=== PATIENT | female | born 1960 | race Two or more races ===

== ENCOUNTER 2017-01-16 05:25 | Inpatient (IN) | payer OTHER ==
[~2017-01-16] VITALS: Ht 152.4 cm; Wt 77.4 kg
[~2017-01-16 05:25] MED LIST: AMOX1TAB61 PO; ATOR40TA59 PO; Aspirin PO; CARV3.12 PO; CHOL500015 PO; CLOP75TA PO; FERR325T72 PO; FLUO20CA8 PO; FLUT16SP NS; FURO-68 PO; GABA-586 PO; GABA600T2; GLIM4TAB2 PO; INSU100I13 SQ; LEVO150T5; LEVO200T5 PO; LOSA1TAB17 PO; LOSA25TA4 PO; Lisinopril PO; MELO-150 PO; METF10002 PO; NITR0.4T6 SL; PANT40TA5 PO; POTA10TA12; POTA10TA31 PO; SULF1TAB23 PO; TICA90TA PO
[2017-01-16] MEDS ORDERED: FENTANYL PF 100 MCG/2 ML VIAL. IV PRN (06:30)
--- NOTE | 2017-01-16 06:45 | EKG ---
[facility] [address] [place] [address] Test Date: 2017-01-16 Test Time: 05:38:38 Pat Name: RAYNA RIZVI Department: Room: Gender: F Manager Packaging: : 1960 Requested By: Teodora MENDOZA Order Number: [id number] Reading MD: Jacinta Zepeda Measurements Intervals [place] Rate: 78 P: 45 AK: 132 QRS: 41 QRSD: 88 T: -15 QT: 380 QTc: 437 Interpretive Statements SINUS RHYTHM T ABNORMALITY IN INFERIOR LEADS ABNORMAL ECG Electronically Signed On 01-20-2017 19:42:03 TOOL OR DIE DRAWING CHECKER by Jacinta Zepeda
[2017-01-16 06:46] LABS: BASO % 1 % (0-3); CALCIUM 8.3 mg/dL (8.5-10.1); CREATININE 0.8 mg/dL (0.6-1.0); EOS % 7 % (0-3); GFR 74.5; HEMATOCRIT 29.2 % (36.0-47.0); HEMOGLOBIN 9.6 g/dL (12.0-15.5); LYMPH # 1.2 x10^3/uL (1.0-4.8); LYMPH % 19 % (24-48); MEAN CORPUSCULAR HEMOGLOBIN 30 pg (25-35); MEAN CORPUSCULAR HGB CONC 33 g/dL (31-37); MEAN CORPUSCULAR VOLUME 92 fL (79-100); MONO % 6 % (0-9); NEUT % 67 % (31-73); PLATELET COUNT 209 x10^3/uL (140-400); POTASSIUM 4.9 mmol/L (3.5-5.1); RED CELL DISTRIBUTION WIDTH 15.8 % (11.5-14.5); WHITE BLOOD COUNT 6.1 x10^3/uL (4.0-11.0)
[2017-01-16 06:56] LABS: PROTHROMBIN TIME PATIENT 12.1 SEC (11.7-14.0)
--- NOTE | 2017-01-16 07:03 | PHYS DOC ---
Past Medical History Past Medical History: Anxiety, CAD, CHF, Depression, Diabetes-Type II, High Cholesterol, Hypertension, Hypothyroid Additional Past Medical Histor: cardiomyopathy Past Surgical History: , Tubal ligation Additional Past Surgical Histo: PACEMAKER heart stents Alcohol Use: None Drug Use: None Adult General Chief Complaint Chief Complaint: SHORTNESS OF BREATH HPI HPI Patient is a 56 year old female who presents with 3 days of difficulty breathing, dry cough, and bilateral lower extremity edema. She also notes central chest tightness and orthopnea. States these symptoms are exactly like prior exacerbations of CHF. States she has increased her lasix dose without improvement of her symptoms, but she has increased urination. She denies fever or chills, nausea or vomiting, palpitations, diaphoresis, hemoptysis, leg pain, diarrhea, dysuria. Review of Systems Review of Systems Constitutional: Denies fever or chills [] Eyes: Denies change in visual acuity, redness, or eye pain [] HENT: Denies nasal congestion or sore throat [] Respiratory: Has cough and shortness of breath [] Cardiovascular: No additional information not addressed in HPI [] GI: Denies abdominal pain, nausea, vomiting, bloody stools or diarrhea [] : Denies dysuria or hematuria [] Musculoskeletal: Denies back pain or joint pain [] Integument: Denies rash or skin lesions [] Neurologic: Denies headache, focal weakness or sensory changes [] Endocrine: Denies polyuria or polydipsia [] Current Medications Current Medications Current Medications Medications (Trade) Dose Ordered Sig/[facility] Start Time Stop Time Status Last Admin Dose Admin Fentanyl Citrate (Fentanyl 2ml Vial) 50 mcg PRN Q15MIN PRN 01/16/17 06:30 01/17/17 06:29 01/16/17 06:39 50 MCG Allergies Allergies Allergies Coded Allergies Type Severity Reaction Last Updated Verified lisinopril Adverse Reaction Mild COUGH 01/16/17 Yes Physical Exam Physical Exam Constitutional: Well developed, well nourished, no acute distress, non-toxic appearance. [] HENT: Normocephalic, atraumatic, bilateral external ears normal, oropharynx moist, nose normal. [] Eyes: PERRLA, EOMI. [] Neck: Normal range of motion, supple. [] Cardiovascular:Heart rate regular rhythm [] Lungs & Thorax: Bibasilar crackles, normal work of breathing, equal breath sounds [] Abdomen: Bowel sounds normal, soft, no tenderness. [] Skin: Warm, dry, no erythema, no rash. [] Back: Normal range of motion. [] Extremities: No tenderness, ROM intact, bilateral 2+ lower extremity edema, no palpable cord. [] Neurologic: Alert and oriented X 3, normal motor function, normal sensory function, no focal deficits noted. [] Psychologic: Affect normal, judgement normal, mood normal. [] Current Patient Data Vital Signs Vital Signs Date Time Temp Pulse Resp B/P Pulse Ox O2 Delivery O2 Flow Rate FiO2 01/16/17 06:39 16 Room Air 01/16/17 06:36 163/72 01/16/17 06:08 76 95 01/16/17 05:37 97.6 97.6 Lab Values Laboratory Tests Test 01/16/17 05:42 White Blood Count 6.1x10^3/uL (4.0-11.0) Red Blood Count 3.20x10^6/uL (3.50-5.40) L Hemoglobin 9.6g/dL (12.0-15.5) L Hematocrit 29.2% (36.0-47.0) L Mean Corpuscular Volume 92fL (79-100) Mean Corpuscular Hemoglobin 30pg (25-35) Mean Corpuscular Hemoglobin Concent 33g/dL (31-37) Red Cell Distribution Width 15.8% (11.5-14.5) H Platelet Count 209x10^3/uL (140-400) Neutrophils (%) (Auto) 67% (31-73) Lymphocytes (%) (Auto) 19% (24-48) L Monocytes (%) (Auto) 6% (0-9) Eosinophils (%) (Auto) 7% (0-3) H Basophils (%) (Auto) 1% (0-3) Neutrophils # (Auto) 4.1x10^3uL (1.8-7.7) Lymphocytes # (Auto) 1.2x10^3/uL (1.0-4.8) Monocytes # (Auto) 0.3x10^3/uL (0.0-1.1) Eosinophils # (Auto) 0.4x10^3/uL (0.0-0.7) Basophils # (Auto) 0.0x10^3/uL (0.0-0.2) Prothrombin Time 12.1SEC (11.7-14.0) Prothrombin Time INR 1.0 (0.8-1.1) Sodium Level 146mmol/L (136-145) H Potassium Level 4.9mmol/L (3.5-5.1) Chloride Level 111mmol/L (98-107) H Carbon Dioxide Level 30mmol/L (21-32) Anion Gap 5 (6-14) L Blood Urea Nitrogen 36mg/dL (7-20) H Creatinine 0.8mg/dL (0.6-1.0) Estimated GFR (Cockcroft-Gault) 74.5 Glucose Level 254mg/dL (70-99) H Calcium Level 8.3mg/dL (8.5-10.1) L Troponin I Quantitative 0.019ng/mL (0.000-0.055) VS-Pue-Z-Type Natriuretic Peptide 4228pg/mL (0-124) H Laboratory Tests 01/16/17 05:42 Laboratory Tests 01/16/17 05:42 EKG EKG EKG as interpreted by me as normal sinus rhythm, rate 78, no ST-T changes, normal intervals, no ectopy, unchanged from prior Radiology/Procedures Radiology/Procedures Chest x-ray interpreted by me with bilateral pulmonary edema Course & Med Decision Making Course & Med Decision Making Pertinent Labs and Imaging studies reviewed. (See chart for details) Has pulmonary edema and elevated pro-BNP as well as physical exam findings of acute on chronic CHF exacerbation. Will admit for IV diuresis as she has recently increased her home dose without improvement of symptoms. Discussed case with Dr. Vences, who will admit. Cardiology consult placed. Dragon Disclaimer Dragon Disclaimer This electronic medical record was generated, in whole or in part, using a voice recognition dictation system. Departure Departure Impression: Primary Impression: Acute on chronic congestive heart failure Disposition: ADMITTED INPATIENT Condition: STABLE Referrals: GUERDA VENCES MD (PCP) Problem Qualifiers Primary Impression: Acute on chronic congestive heart failure Congestive heart failure type: unspecified congestive heart failure type Qualified Code: I50.9 - Heart failure, unspecified Teodora MENDOZA MD Jan 16, 2017 07:03
--- NOTE | 2017-01-16 07:09 | RAD ---
Chest, 2 views, 01/16/2017: History: Dyspnea Comparison is made to a study from 10/25/2016. A left-sided transvenous pacing device remains in place with 2 leads extending into the right heart. The heart is enlarged. The pulmonary vascularity is prominent. There are increased interstitial markings in the lungs suggesting interstitial edema. These opacities appear to be slightly worse than on the previous exam. No consolidating infiltrate is seen. There is no evidence of pleural fluid. The bony structures are demineralized. IMPRESSION: Cardiomegaly with moderate interstitial opacities most compatible with pulmonary edema due to congestive heart failure.
[2017-01-16] MEDS ORDERED: FUROSEMIDE 40 MG/4 ML VIAL IVP ONE (08:15)
[2017-01-16] MEDS ORDERED: ACETAMINOPHEN 325 MG TABLET. PO PRN (08:15)
[2017-01-16] MEDS ORDERED: ONDANSETRON PF 4 MG/2 ML VIAL. IV PRN (08:15)
--- NOTE | 2017-01-16 08:51 | ACF ---
Admit Criteria Forms Admit Criteria Forms Admit Criteria Forms HEART FAILURE: COMMON COMPLICATIONS Clinical Indications for Inpatient Care (Place 'X' for any and all applicable criteria): Ongoing inpatient care may be indicated for heart failure with ANY ONE of the following (1)(2)(3)(4)(5): [ ]I. Ongoing need for care for primary condition requiring frequent therapy adjustments because of changes in cardiac function (eg, drug dosage changes for drugs that are renally metabolized) [ ]II. New-onset heart failure [ ]III. Heart failure with decreased urine output not responsive to attempts to optimize volume status [ ]IV. Acute cardiac ischemia causing or associated with failure [X]V. Complications of heart failure, including ANY ONE of the following: [ ]a) Pericardial effusion [ ]b) Symptomatic pleural effusion [ ]c) O2 saturation <90% or PO2 < 60 mm Hg (8.0 kPa) on room air or require baseline supplemental O2 [ ]d) Tachypnea [X]e) Dyspnea [ ]f) Syncope [ ]g) Change in mental status [ ]h) Acute renal insufficiency that is severe (reduction of more than 50% in estimated glomerular filtration rate from baseline) or progressive reduction of more than 25% in estimated glomerular filtration rate from baseline, with creatinine continuing to rise) [ ]i) Hemodynamic instability [ ]j) Anasarca [ ]k) Clinically significant metabolic abnormalities due to heart failure (eg, new-onset metabolic acidosis) Extended stay beyond goal length of stay for primary condition may be needed until ALL of the following are present(1)(3): [ ]a) Stable and effective diuretic regimen established (or patient on stable dialysis regimen if in chronic renal failure) [ ]b) Breathing comfortably at rest [ ]c) Saturation of arterial oxygen greater than 90% or at acceptable baseline [ ]d) Pulmonary edema absent or improved [ ]e) Hemodynamic stability [ ]f) Volume status acceptable on oral medication [ ]g) Peripheral or sacral edema absent or improved [ ]h) Renal function stable and manageable at a lower level of care [ ]i) Complications (eg, pleural effusion) resolved or manageable at a lower level of care [ ]j) Patient or caregiver has received written discharge instructions or educational material addressing activity level, diet, discharge medications, follow-up appointment, weight monitoring, and what to do if symptoms worsen The original [employer] content created by Millimayoung Lea has been revised. The portions of the content which have been revised are identified through the use of italic text or in bold, and Peterduke [employer]oung Lea has neither reviewed nor approved the modified material.All other unmodified content is copyright [facility] [employer]. Please see references footnoted in the original [facility] [employer] edition 2016 DOUG JHAVERI Jan 16, 2017 08:51
[2017-01-16 09:16] VITALS: BP 173/79
--- NOTE | 2017-01-16 09:28 | PDOC2 ---
CARDIAC CONSULT DATE OF CONSULT Date of Consult DATE: 01/16/17 TIME: 09:19 REASON FOR CONSULT Reason for Consult: CHF Exacerbation REFERRING PHYSICIAN Referring Physician: Dr. Ham SOURCE Source: Chart review, Patient HISTORY OF PRESENT ILLNESS HISTORY OF PRESENT ILLNESS This is a 56 yo female who presented with complaints of shortness of breath and LE edema. Patient reports symptoms began 4-5 days ago. Much worse that last day or so. Apparently she was given steroids for right knee pain about a week ago and symptoms began within the next couple of days. Ongoing cough for the last week. Reports chest heaviness associated with shortness of breath. Relieves when she calms down/breathing improves. Has also had some dizziness and palpitations when significantly short of air. Has experienced orthopnea for the last 4 days. Denies any syncope, diaphoresis, nausea/vomiting, or fevers. No sick contacts. Reports compliance with medications. PAST MEDICAL HISTORY Past Medical History Cardiovascular: CHF, CAD (s/p PCI/KALANI to OMB of LCx and PTCA to diagonal branch of LAD), HTN, Hyperlipidemia, Other (ischemic cardiomyopathy s/p ICD ) CENTRAL NERVOUS SYSTEM: Peripheral neuropathy Psych: Anxiety, Depression Musculoskeletal: Osteoarthritis Renal/: Chronic renal insuff Endocrine: Diabetes, Hypothyroidism PAST SURGICAL HISTORY Past Surgical History Pacemaker (ICD implantation ([employer]) 03/06/16), Cataract Removal, Other (I&D left-sided buttock abscess) FAMILY HISTORY Family History: Hypertension SOCIAL HISTORY Smoke: <1 pack per day ALCOHOL: none Drugs: None Lives: with Family CURRENT MEDICATIONS CURRENT MEDICATIONS Current Medications Medications (Trade) Dose Ordered Sig/Arturo Route PRN Reason Start Time Stop Time Status Last Admin Dose Admin Fentanyl Citrate (Fentanyl 2ml Vial) 50 mcg PRN Q15MIN PRN IV PAIN GREATER THAN 3/10 01/16/17 06:30 01/17/17 06:29 01/16/17 06:39 ALLERGIES ALLERGIES: Coded Allergies: lisinopril (Verified Adverse Reaction, Mild, COUGH, 01/16/17) caused cough ROS Review of System 14 point ROS conducted with pertinent positives noted above in HPI. PHYSICAL EXAM General: Alert, Oriented X3, Cooperative, mild distress HEENT: Atraumatic, Mucous membr. moist/pink Lungs: Other (bibasila crackles, left chest ICD) Heart: Regular rate, Normal S1, Normal S2, Other (3/6 systolic murmur ) Abdomen: Soft Extremities: Normal pulses, Other (2+ bilateral LE edema ) Skin: No breakdown, No significant lesion Neuro: Normal speech, Sensation intact Psych/Mental Status: Mental status NL, Mood NL MUSCULOSKELETAL: Osteoarthritic changes both hands VITALS VITALS Vital Signs Date Time Temp Pulse Resp B/P Pulse Ox O2 Delivery O2 Flow Rate FiO2 01/16/17 09:16 98.0 79 20 173/79 93 Room Air 98.0 LABS Lab: Laboratory Tests Test 01/16/17 05:42 White Blood Count 6.1x10^3/uL (4.0-11.0) Red Blood Count 3.20x10^6/uL (3.50-5.40) Hemoglobin 9.6g/dL (12.0-15.5) Hematocrit 29.2% (36.0-47.0) Mean Corpuscular Volume 92fL (79-100) Mean Corpuscular Hemoglobin 30pg (25-35) Mean Corpuscular Hemoglobin Concent 33g/dL (31-37) Red Cell Distribution Width 15.8% (11.5-14.5) Platelet Count 209x10^3/uL (140-400) Neutrophils (%) (Auto) 67% (31-73) Lymphocytes (%) (Auto) 19% (24-48) Monocytes (%) (Auto) 6% (0-9) Eosinophils (%) (Auto) 7% (0-3) Basophils (%) (Auto) 1% (0-3) Neutrophils # (Auto) 4.1x10^3uL (1.8-7.7) Lymphocytes # (Auto) 1.2x10^3/uL (1.0-4.8) Monocytes # (Auto) 0.3x10^3/uL (0.0-1.1) Eosinophils # (Auto) 0.4x10^3/uL (0.0-0.7) Basophils # (Auto) 0.0x10^3/uL (0.0-0.2) Prothrombin Time 12.1SEC (11.7-14.0) Prothromb Time International Ratio 1.0 (0.8-1.1) Sodium Level 146mmol/L (136-145) Potassium Level 4.9mmol/L (3.5-5.1) Chloride Level 111mmol/L (98-107) Carbon Dioxide Level 30mmol/L (21-32) Anion Gap 5 (6-14) Blood Urea Nitrogen 36mg/dL (7-20) Creatinine 0.8mg/dL (0.6-1.0) Estimated GFR (Cockcroft-Gault) 74.5 Glucose Level 254mg/dL (70-99) Calcium Level 8.3mg/dL (8.5-10.1) Troponin I Quantitative 0.019ng/mL (0.000-0.055) ZY-Ncg-V-Type Natriuretic Peptide 4228pg/mL (0-124) ECHOCARDIOGRAM ECHOCARDIOGRAM <Conclusion> The Left Ventricle is mildly dilated. Left ventricle systolic function is moderately impaired. Left ventricular ejection fraction is estimated at 35%. There is no significant aortic valvular stenosis. Doppler and Color Flow revealed no significant aortic regurgitation. Doppler and Color Flow revealed mild mitral regurgitation. Doppler and Color Flow revealed mild to moderate tricuspid regurgitation. The PA pressure was estimated at 52 mmHg. There is a small pericardial effusion with no hemodynamic significance. DATE: 10/26/16 1747 STRESS TEST STRESS TEST Conclusion 1. No EKG evidence of inducible ischemia. 2. Nuclear images show an inferior lateral wall infarct. 3. Nuclear images also suggest a small area of reversible ischemia in the anterior wall. 4. Left ventricular systolic function is decreased at 38% with inferior wall hypokinesis. 5. Moderate to moderately low risk Lexiscan nuclear test most significant for previous infarct and a possible small area of reversible ischemia in the anterior wall. DATE: 02/05/15 1144 ASSESSMENT/PLAN ASSESSMENT/PLAN 1. Acute on Chronic Systolic Heart Failure NT Pro BNP elevated; CXR with vascular congestion improved with IV Lasix; continue intravenous diuresis with monitoring of renal function 2. Acute on chronic respiratory failure secondary to acute HF and URI 3. Ischemic Cardiomyopathy s/p AICD implantation ([employer]) Recent echo with EF 35%, which is better than prior, notable for polyvalvular insufficiency with moderate pulmonary HTN Continue with optimization Maintain Na control and 2000 FR 4. Coronary Artery Disease s/p PCI/KALANI to HARDWARE DESIGN ENGINEER of RCA, diagonal branch of LAD and OM brand of LCx. presently stable and CP free. continue with secondary prevention including DAPT consider ischemic workup when acute issues resolve. 5. Hypertension labile resume home antiHTN therapy Hydralazine PRN 6. Hyperlipidemia On goal, continue with statin 7. DM2 8. Hypothyroidism on replacement therapy 9. Tobaccoism cessation discussed Problems: AMBROSE MCDONNELL APRN Jan 16, 2017 09:28
[2017-01-16] MEDS ORDERED: LOSA25TA4 PO (09:30)
[2017-01-16] MEDS: FENTANYL PF 100 MCG/2 ML VIAL. IV PRN ×3 (09:39→14:42)
[2017-01-16 10:50] VITALS: BP 161/72
[2017-01-16] MEDS ORDERED: hydrALAZINE 20 MG/ML VIAL. IVP PRN (11:00)
[2017-01-16] MEDS: CLOPIDOGREL BISULFATE 75 MG TABLET PO SCH (11:00)
[2017-01-16] MEDS: ASPIRIN ENTERIC COATED 81 MG TABLET.DR. PO SCH (12:00)
[2017-01-16] MEDS: POTASSIUM CHLORIDE 10 MEQ TABLET.ER. PO SCH (12:27)
[2017-01-16] MEDS: LOSARTAN POTASSIUM 25 MG TABLET. PO SCH (12:27)
[2017-01-16] MEDS: FERROUS SULFATE 325 MG TABLET PO SCH ×2 (12:27→17:37)
[2017-01-16 13:03] LABS: OBC FLU VALID
[2017-01-16 14:33] VITALS: BP 147/73
[2017-01-16] MEDS: FUROSEMIDE 40 MG/4 ML VIAL IVP SCH (14:41)
[2017-01-16] MEDS: CARVEDILOL 3.125 MG TABLET PO SCH (17:38)
[2017-01-16] MEDS ORDERED: NITROGLYCERIN SUBLINGUAL 0.4 MG BOTTLE OF 25. SL PRN (18:15)
[2017-01-16] MEDS: LEVOTHYROXINE 150 MCG TABLET PO SCH (19:00)
[2017-01-16 19:20] VITALS: BP 146/63
[2017-01-16] MEDS: FLUOXETINE HCL 20 MG CAPSULE PO SCH (20:41)
[2017-01-16] MEDS: PANTOPRAZOLE 40 MG TABLET. PO SCH (20:41)
[2017-01-16] MEDS: ATORVASTATIN CALCIUM 40 MG TABLET. PO SCH (20:41)
[2017-01-16] MEDS: METFORMIN 1,000 MG TABLET PO SCH (20:41)
[2017-01-16] MEDS: GABAPENTIN 300 MG CAPSULE. PO SCH (20:42)
[2017-01-16] MEDS: FLUTICASONE 50MCG/NASAL SPRAY 16GM BOTTLE. NS SCH (20:45)
[2017-01-16] MEDS ORDERED: INSULIN DETEMIR 300 UNITS/3 ML INSULN.PEN. SQ SCH (21:00)
[2017-01-16 22:55] VITALS: BP 134/51
[2017-01-17 04:03] VITALS: BP 134/70
[2017-01-17 05:47] LABS: BASO % 1 % (0-3); EOS % 7 % (0-3); HEMATOCRIT 28.9 % (36.0-47.0); HEMOGLOBIN 9.5 g/dL (12.0-15.5); LYMPH # 1.7 x10^3/uL (1.0-4.8); LYMPH % 26 % (24-48); MEAN CORPUSCULAR HEMOGLOBIN 30 pg (25-35); MEAN CORPUSCULAR HGB CONC 33 g/dL (31-37); MEAN CORPUSCULAR VOLUME 92 fL (79-100); MONO % 6 % (0-9); NEUT % 60 % (31-73); PLATELET COUNT 208 x10^3/uL (140-400); RED BLOOD COUNT 3.15 x10^6/uL (3.50-5.40); RED CELL DISTRIBUTION WIDTH 15.6 % (11.5-14.5); WHITE BLOOD COUNT 6.4 x10^3/uL (4.0-11.0)
[2017-01-17 05:59] LABS: CALCIUM 8.4 mg/dL (8.5-10.1); CREATININE 0.7 mg/dL (0.6-1.0); GFR 86.9; POTASSIUM 4.5 mmol/L (3.5-5.1)
[2017-01-17 07:23] VITALS: BP 130/60
[2017-01-17] MEDS: GLIMEPIRIDE 2 MG TABLET PO SCH (08:00)
[2017-01-17] MEDS: METFORMIN 1,000 MG TABLET PO SCH ×2 (08:00→17:31)
[2017-01-17] MEDS ORDERED: DEXTROSE 50% 25 GM / 50ML DISP.SYRIN. IV ONE (08:02)
[2017-01-17] MEDS: LEVOTHYROXINE 150 MCG TABLET PO SCH (08:33)
[2017-01-17] MEDS: ASPIRIN ENTERIC COATED 81 MG TABLET.DR. PO SCH (08:33)
[2017-01-17] MEDS: FUROSEMIDE 40 MG/4 ML VIAL IVP SCH ×2 (08:33→15:43)
[2017-01-17] MEDS: CARVEDILOL 3.125 MG TABLET PO SCH ×2 (08:34→17:32)
[2017-01-17] MEDS: LOSARTAN POTASSIUM 25 MG TABLET. PO SCH (08:35)
[2017-01-17] MEDS: PANTOPRAZOLE 40 MG TABLET. PO SCH (08:35)
[2017-01-17] MEDS: FERROUS SULFATE 325 MG TABLET PO SCH ×3 (08:36→17:31)
[2017-01-17] MEDS: CLOPIDOGREL BISULFATE 75 MG TABLET PO SCH (08:36)
[2017-01-17] MEDS: POTASSIUM CHLORIDE 10 MEQ TABLET.ER. PO SCH (08:36)
[2017-01-17] MEDS: FLUOXETINE HCL 20 MG CAPSULE PO SCH (08:36)
[2017-01-17] MEDS: FLUTICASONE 50MCG/NASAL SPRAY 16GM BOTTLE. NS SCH (08:36)
[2017-01-17] MEDS: GABAPENTIN 300 MG CAPSULE. PO SCH ×2 (08:36→21:07)
[2017-01-17 10:15] VITALS: BP 126/58
--- NOTE | 2017-01-17 10:46 | PDOC ---
CARDIO Progress Notes Date and Time Date of Service 01/17/17 Time of Evaluation 1040 Subjective Subjective: No Chest Pain, No Palpitations, No Dizziness, Other (breathing improved. Less SOA) Vitals Vitals Vital Signs Date Time Temp Pulse Resp B/P Pulse Ox O2 Delivery O2 Flow Rate FiO2 01/17/17 10:15 97.9 69 20 126/58 98 Nasal Cannula 97.9 01/17/17 04:03 2.0 Weight Weight [ ] Input and Output Intake and Output Intake and Output 01/17/17 07:00 Intake Total 900 ml Output Total 250 ml Balance 650 ml Intake Oral 900 ml Output Urine Total 250 ml # Voids 1 Laboratory Labs Laboratory Tests Test 01/16/17 11:34 01/16/17 12:25 01/16/17 17:50 01/16/17 20:50 Glucose (Fingerstick) 314mg/dL (70-99) 182mg/dL (70-99) 168mg/dL (70-99) Influenza Type A Antigen Negative (NEGATIVE) Influenza Type B Antigen Negative (NEGATIVE) Test 01/17/17 04:50 01/17/17 07:31 01/17/17 07:52 01/17/17 08:32 White Blood Count 6.4x10^3/uL (4.0-11.0) Red Blood Count 3.15x10^6/uL (3.50-5.40) Hemoglobin 9.5g/dL (12.0-15.5) Hematocrit 28.9% (36.0-47.0) Mean Corpuscular Volume 92fL (79-100) Mean Corpuscular Hemoglobin 30pg (25-35) Mean Corpuscular Hemoglobin Concent 33g/dL (31-37) Red Cell Distribution Width 15.6% (11.5-14.5) Platelet Count 208x10^3/uL (140-400) Neutrophils (%) (Auto) 60% (31-73) Lymphocytes (%) (Auto) 26% (24-48) Monocytes (%) (Auto) 6% (0-9) Eosinophils (%) (Auto) 7% (0-3) Basophils (%) (Auto) 1% (0-3) Neutrophils # (Auto) 3.8x10^3uL (1.8-7.7) Lymphocytes # (Auto) 1.7x10^3/uL (1.0-4.8) Monocytes # (Auto) 0.4x10^3/uL (0.0-1.1) Eosinophils # (Auto) 0.5x10^3/uL (0.0-0.7) Basophils # (Auto) 0.0x10^3/uL (0.0-0.2) Sodium Level 141mmol/L (136-145) Potassium Level 4.5mmol/L (3.5-5.1) Chloride Level 110mmol/L (98-107) Carbon Dioxide Level 31mmol/L (21-32) Anion Gap 0 (6-14) Blood Urea Nitrogen 31mg/dL (7-20) Creatinine 0.7mg/dL (0.6-1.0) Estimated GFR (Cockcroft-Gault) 86.9 Glucose Level 78mg/dL (70-99) Calcium Level 8.4mg/dL (8.5-10.1) Glucose (Fingerstick) 48mg/dL (70-99) 52mg/dL (70-99) 133mg/dL (70-99) Physical Exam HEENT: Neck Supple W Full Motion Chest: Symmetric LUNGS: Other ((bibasilar crackles, left chest ICD) Heart: S1S2, RRR, murmurs (3/6 systolic murmur ) Abdomen: Soft N/T Extremities: No Calf Tenderness, Other (1-2+ bilateral LE edema ) Neurology: alert, oriented, follow commands Assessment Assessment 1. Acute on Chronic Systolic Heart Failure improved; LE edema persists. Continue with IV diuresis with monitoring of renal function Accurate I and O. 2. Acute on chronic respiratory failure secondary to acute HF and URI 3. Ischemic Cardiomyopathy s/p AICD implantation ([employer]) Recent echo with EF 35%, which is better than prior, notable for polyvalvular insufficiency with moderate pulmonary HTN Continue with optimization 4. Coronary Artery Disease s/p PCI/KALANI to LOCKSTITCH CUP SETTER of RCA, diagonal branch of LAD and OM brand of LCx. presently stable and CP free. continue with secondary prevention including DAPT consider ischemic workup when acute issues resolve. 5. Hypertension controlled. Continue with current therapy 6. Hyperlipidemia On goal, continue with statin 7. DM2 AMBROSE MCDONNELL APRN Jan 17, 2017 10:46
[2017-01-17] MEDS ORDERED: METOLAZONE 2.5 MG TABLET PO ONE (14:00)
[2017-01-17] MEDS ORDERED: POTASSIUM CHLORIDE 20 MEQ TABLET.ER. PO ONE (14:00)
[2017-01-17] MEDS ORDERED: FUROSEMIDE 40 MG/4 ML VIAL IVP ONE (14:00)
[2017-01-17 14:12] VITALS: BP 162/78
--- NOTE | 2017-01-17 18:15 | HP ---
ADMIT DATE: 01/16/2017 CHIEF COMPLAINT: Shortness of breath. HISTORY OF PRESENT ILLNESS AND HOSPITAL COURSE: This patient is a 56-year-old female with known history of congestive heart failure, ____ history of increasing shortness of breath associated with cough. She also noted increasing swelling in her lower extremities. The patient did have chest tightness and orthopnea. During ER evaluation, she was found to have evidence of congestive heart failure by BNP and chest x-ray. It did not improve with outpatient Lasix. Due to severity of symptoms, she was admitted for IV Lasix and Cardiology consultation. She was noted her weight was up to 180 and her dry weight is 164. It was also noted that the patient recently had been prescribed prednisone for tenderness of her right foot, which may have exacerbated her symptoms. PAST MEDICAL HISTORY: Significant for: 1. Coronary artery disease, status post stenting. 2. Type 2 diabetes. 3. Hyperlipidemia. 4. Hypothyroidism. 5. Chronic kidney disease. 6. Anemia. 7. Cardiomyopathy with ejection fraction of 35%. 8. Hypertension. 9. Osteoarthritis. 10. Generalized anxiety disorder. FAMILY HISTORY: Significant for father who with complications of diabetes and hypertension. No other significant family history. PAST SURGICAL HISTORY: Significant for ICD placement for cardiomyopathy, cataract extraction, section and I and D of abscess of back. SOCIAL HISTORY: The patient is a smoker, half pack per day. She does not drink alcohol. She lives at home with her children. MEDICAL ALLERGIES: COUGH WITH KENYON INHIBITOR. REVIEW OF SYSTEMS: The patient has leg swelling, increasing shortness of breath over the last 3 days. She denies fever, cough, congestion, nausea, vomiting or diarrhea. PHYSICAL EXAMINATION: GENERAL: This is a well-nourished, mildly obese female in mild distress. She is alert and oriented x 3. HEENT: Benign. NECK: Supple, without JVD or bruit. CARDIAC: Regular rate and rhythm with a grade ____ systolic ejection murmur heard. LUNGS: Clear, decreased breath sounds in the bases. ABDOMEN: Soft, nontender. EXTREMITIES: Showed 2+ pulses with 2-3+ pitting edema. NEUROLOGIC: Showed no unilateral findings. ASSESSMENT: 1. Acute respiratory failure. 2. Acute on chronic systolic congestive heart failure. 3. Type 2 diabetes. 4. Hypertension. 5. Hypothyroidism. PLAN: To proceed with diuresis. Cardiology consultation and oxygen support and monitor the patient's clinical condition. GUERDA ALDANA MD DR: ARABELLA/mukesh JOB#: [id number] / [id number]
[2017-01-17 19:32] VITALS: BP 159/76
[2017-01-17] MEDS ORDERED: INSULIN DETEMIR 300 UNITS/3 ML INSULN.PEN. SQ SCH (21:00)
[2017-01-17] MEDS: ATORVASTATIN CALCIUM 40 MG TABLET. PO SCH (21:07)
[2017-01-17 23:05] VITALS: BP 141/59
[2017-01-18 03:30] VITALS: BP 135/62
[2017-01-18 05:16] LABS: CALCIUM 8.5 mg/dL (8.5-10.1); CREATININE 0.9 mg/dL (0.6-1.0); MAGNESIUM 2.3 mg/dL (1.8-2.4); POTASSIUM 4.8 mmol/L (3.5-5.1)
[2017-01-18 07:00] VITALS: BP 152/67
[2017-01-18] MEDS: LEVOTHYROXINE 150 MCG TABLET PO SCH (07:04)
[2017-01-18] MEDS: FUROSEMIDE 40 MG/4 ML VIAL IVP SCH (08:54)
[2017-01-18] MEDS: GABAPENTIN 300 MG CAPSULE. PO SCH (08:54)
[2017-01-18] MEDS: CLOPIDOGREL BISULFATE 75 MG TABLET PO SCH (08:54)
[2017-01-18] MEDS: FLUTICASONE 50MCG/NASAL SPRAY 16GM BOTTLE. NS SCH (08:54)
[2017-01-18] MEDS: ASPIRIN ENTERIC COATED 81 MG TABLET.DR. PO SCH (08:55)
[2017-01-18] MEDS: LOSARTAN POTASSIUM 25 MG TABLET. PO SCH (08:55)
[2017-01-18] MEDS: METFORMIN 1,000 MG TABLET PO SCH (08:55)
[2017-01-18] MEDS: PANTOPRAZOLE 40 MG TABLET. PO SCH (08:55)
[2017-01-18] MEDS: POTASSIUM CHLORIDE 10 MEQ TABLET.ER. PO SCH (08:55)
[2017-01-18] MEDS: FLUOXETINE HCL 20 MG CAPSULE PO SCH (08:56)
[2017-01-18] MEDS: CARVEDILOL 3.125 MG TABLET PO SCH (08:56)
[2017-01-18] MEDS: FERROUS SULFATE 325 MG TABLET PO SCH ×2 (08:56→11:59)
[2017-01-18] MEDS: GLIMEPIRIDE 2 MG TABLET PO SCH (08:56)
--- NOTE | 2017-01-18 09:31 | PDOC ---
CARDIO Progress Notes Date and Time Date of Service 01/18/17 Time of Evaluation 0930 Subjective Subjective: No Chest Pain, No shortness of breath, No Palpitations, No Dizziness, Other (edema much better, no SOA) Vitals Vitals Vital Signs Date Time Temp Pulse Resp B/P Pulse Ox O2 Delivery O2 Flow Rate FiO2 01/18/17 08:56 83 152/67 01/18/17 08:01 Room Air 01/18/17 07:00 98.5 20 94 98.5 Weight Weight [ ] Input and Output Intake and Output Intake and Output 01/18/17 07:00 Intake Total 1340 ml Output Total 4325 ml Balance -2985 ml Intake Oral 1340 ml Output Urine Total 4325 ml Laboratory Labs Laboratory Tests Test 01/17/17 11:29 01/17/17 17:29 01/17/17 21:07 01/18/17 04:40 Glucose (Fingerstick) 98mg/dL (70-99) 280mg/dL (70-99) 158mg/dL (70-99) Sodium Level 144mmol/L (136-145) Potassium Level 4.8mmol/L (3.5-5.1) Chloride Level 110mmol/L (98-107) Carbon Dioxide Level 29mmol/L (21-32) Anion Gap 5 (6-14) Blood Urea Nitrogen 26mg/dL (7-20) Creatinine 0.9mg/dL (0.6-1.0) Estimated GFR (Cockcroft-Gault) 65.0 Glucose Level 199mg/dL (70-99) Calcium Level 8.5mg/dL (8.5-10.1) Magnesium Level 2.3mg/dL (1.8-2.4) Test 01/18/17 07:36 Glucose (Fingerstick) 184mg/dL (70-99) Physical Exam HEENT: Neck Supple W Full Motion Chest: Symmetric LUNGS: Clear to Auscultation, Other (left chest ICD) Heart: S1S2, RRR, murmurs (3/6 systolic murmur ) Abdomen: Soft N/T Extremities: 2+ Dorsalis Pedis, No Calf Tenderness, Other (trace LE edema bilaterally ) Neurology: alert, oriented, follow commands Assessment Assessment 1. Acute on Chronic Systolic Heart Failure improved; significant UOP overnight with combination of IV lasix and dose of metolazone. neg 3L balance appears compensated; convert to oral diuresis 2. Acute on chronic respiratory failure secondary to acute HF and URI 3. Ischemic Cardiomyopathy s/p AICD implantation ([place] [place]) Recent echo with EF 35%, which is better than prior, notable for polyvalvular insufficiency with moderate pulmonary HTN Continue with optimization 4. Coronary Artery Disease s/p PCI/KALANI to CLINICAL SCIENCE LIAISON of RCA, diagonal branch of LAD and OM brand of LCx. presently stable and CP free. continue with secondary prevention including DAPT consider outpatient ischemic workup 5. Hypertension controlled. Continue with current therapy 6. Hyperlipidemia On goal, continue with statin 7. DM2 AMBROSE MCDONNELL APRN Jan 18, 2017 09:31
[2017-01-18 11:00] VITALS: BP 124/70
[2017-01-18] MEDS ORDERED: FUROSEMIDE 40 MG TABLET PO SCH (14:00)
--- NOTE | 2017-01-18 22:01 | DS ---
DATE OF DISCHARGE: 01/18/2017 ADMITTING DIAGNOSIS: 1. Acute on chronic diastolic and systolic congestive heart failure. 2. Acute ____ respiratory failure. 3. Type 2 diabetes. 4. Hypertension. 5. Hypothyroidism. HISTORY OF PRESENT ILLNESS AND HOSPITAL COURSE: This patient is a 56-year-old female who was admitted with increasing shortness of breath and found to have evidence of congestive heart failure by chest x-ray and BNP. Her weight was up to 180 with a dry weight of 164. She was admitted for diuresis and Cardiology consultation. She underwent diuresis with IV Lasix and subsequently Zaroxolyn was added with adequate diuresis up to 3 liters, back to a weight of 170. At this point, the patient was back at her baseline. It was felt that her heart failure was exacerbated by prednisone, which causes increased water retention, which was being used for arthritis symptoms. This was discontinued during hospital stay. At this point, the patient will be discharged on her previous home medications without change. Follow up in the office in 2 weeks and monitor for increasing weight. She will be held out of work for 2 weeks for continued evaluation and further rest and recuperation. GUERDA ALDANA MD DR: ARABELLA/mukesh JOB#: [id number] / [id number]
== END 2017-01-18 13:21 | disposition home or self-care (01) | DRG 291 ==
LOC: ER 05:25 → ED HOLD 08:04 → 2 NORTH 08:38 → CVICU 16:52
PROVIDERS: ADMIT Family Medicine; ATTEND Family Medicine
DX: I50.43 Acute on chronic combined systolic (congestive) and diastolic (congestive) heart failure (principal); J96.20 Acute and chronic respiratory failure, unspecified whether with hypoxia or hypercapnia; I13.0 Hypertensive heart and chronic kidney disease with heart failure and stage 1 through stage 4 chronic kidney disease, or unspecified chronic kidney disease; N18.9 Chronic kidney disease, unspecified; E11.22 Type 2 diabetes mellitus with diabetic chronic kidney disease; E03.9 Hypothyroidism, unspecified; E78.00 Pure hypercholesterolemia, unspecified; F41.1 Generalized anxiety disorder; F17.200 Nicotine dependence, unspecified, uncomplicated; E78.5 Hyperlipidemia, unspecified; I25.10 Atherosclerotic heart disease of native coronary artery without angina pectoris; E66.9 Obesity, unspecified; E11.40 Type 2 diabetes mellitus with diabetic neuropathy, unspecified; I25.5 Ischemic cardiomyopathy; I27.2 Other secondary pulmonary hypertension; M19.90 Unspecified osteoarthritis, unspecified site; J06.9 Acute upper respiratory infection, unspecified; T38.0X5A Adverse effect of glucocorticoids and synthetic analogues, initial encounter; F32.9 Major depressive disorder, single episode, unspecified; Z88.8 Allergy status to other drugs, medicaments and biological substances; Z83.3 Family history of diabetes mellitus; Z98.51 Tubal ligation status; Z95.5 Presence of coronary angioplasty implant and graft; Z95.810 Presence of automatic (implantable) cardiac defibrillator; Z82.49 Family history of ischemic heart disease and other diseases of the circulatory system; Z79.899 Other long term (current) drug therapy; Z68.33 Body mass index [BMI] 33.0-33.9, adult
CPT/HCPCS: 36415; 71020; 80048; 82947; 83735; 83880; 84484; 85027; 85610; 87804; 93005; 96374; 99406; J1815; J1940; J3010; J7042; 99285-25

== ENCOUNTER → 2017-02-06 | Outpatient (CLI) | payer OTHER ==
[2017-01-18 11:00] VITALS: BP 124/70
--- NOTE | 2017-02-07 09:31 | RAD ---
DATE: February 06, 2017 EXAM: DIGITAL SCREEN BILAT W/CAD HISTORY: Routine screening. COMPARISON: None. Baseline study. TECHNIQUE: 2D digital CC and MLO views of each breast were obtained. There is a repeat right CC and left MLO view. This study was interpreted with the benefit of Computerized Aided Detection (CAD). FINDINGS: The breast parenchyma is heterogeneously dense, category C, which may obscure small masses. There is a potential mass within the outer lower right breast 11-12 cm from the nipple measuring 12 mm in size. This is about the 7:00 position. No additional mass is identified. There are benign calcifications. IMPRESSION: Potential mass in the outer lower right breast for which compression views, ML view, and exaggerated CC view would be recommended. If the finding persists, ultrasound will likely be required. BI-RADS CATEGORY: 0 INCOMPLETE: NEEDS ADDITIONAL IMAGING EVALUATION/COMPARISON WITH PRIOR STUDIES RECOMMENDED FOLLOW-UP: ADD ADDITIONAL IMAGING PQRS compliance statement: Patient information was entered into a reminder system with a target due date for the next mammogram. Mammography is a sensitive method for finding small breast cancers, but it does not detect them all and is not a substitute for careful clinical examination. A negative mammogram does not negate a clinically suspicious finding and should not result in delay in biopsying a clinically suspicious abnormality. "Our facility is accredited by the [employer] Mammography Program."
== END | disposition home or self-care (01) ==
LOC: MAMMO 15:40
PROVIDERS: ATTEND Family Medicine
DX: Z12.31 Encounter for screening mammogram for malignant neoplasm of breast (principal)
CPT/HCPCS: G0202; 77067

== ENCOUNTER → 2017-02-12 | Outpatient (CLI) | payer OTHER ==
[2017-01-18 11:00] VITALS: BP 124/70
[2017-02-12 12:54] LABS: CALCIUM 8.7 mg/dL (8.5-10.1); GFR 57.6; POTASSIUM 4.3 mmol/L (3.5-5.1)
== END | disposition home or self-care (01) ==
LOC: LAB 12:19
PROVIDERS: ATTEND Internal Medicine Cardiovascular Disease
DX: I25.5 Ischemic cardiomyopathy (principal)
CPT/HCPCS: 36415; 80048

== ENCOUNTER → 2017-02-14 | Outpatient (CLI) | payer OTHER ==
[2017-01-18 11:00] VITALS: BP 124/70
--- NOTE | 2017-02-14 11:01 | RAD ---
DATE: 02/14/2017 EXAM: DIGITAL DIAGNOSTIC RT, BREAST RIGHT HISTORY: Possible abnormality seen on screening COMPARISON: Screening examination 8 days earlier This study was interpreted with the benefit of Computerized Aided Detection (CAD). FINDINGS: The breast parenchyma unchanged relative to the screening exam. The patient now says she has a small lump in the lower outer right breast in the area where a density was seen on the screening examination. The patient reports that she has frequent sebaceous cysts associated with the breasts. The patient additionally reports that the mass is slightly smaller than several days ago. The area where the patient reports a palpable abnormality was marked on today's study. The area of increased density seen on the screening examination is not reproduced on today's CC image or the exaggerated cc view similar to the screening exam. A density is seen inferiorly in the right breast on the MLO view I examined the patient. In the lower outer aspect of the right breast at approximately the 7:00 position there is a small palpable lump. Targeted ultrasound was performed. There is a 8mm mass, in the dermal layer of the skin compatible with a cyst. A lesion within the breast itself is not seen. IMPRESSION: Probable benign findings. Findings compatible with a cyst in the right breast. A follow-up MLO view of the right breast is suggested 6 months to document stability BI-RADS CATEGORY: 3 PROBABLE BENIGN FINDING(S-SHORT INTERVAL FOLLOW-UP SUGGESTED RECOMMENDED FOLLOW-UP: 6M 6 MONTH FOLLOW-UP PQRS compliance statement: Patient information was entered into a reminder system with a target due date 08/17/2017 for the next mammogram. Mammography is a sensitive method for finding small breast cancers, but it does not detect them all and is not a substitute for careful clinical examination. A negative mammogram does not negate a clinically suspicious finding and should not result in delay in biopsying a clinically suspicious abnormality. "Our facility is accredited by the [employer] Mammography Program."
== END | disposition home or self-care (01) ==
LOC: MAMMO 09:49
PROVIDERS: ATTEND Family Medicine
DX: R92.8 Other abnormal and inconclusive findings on diagnostic imaging of breast (principal)
CPT/HCPCS: 76641; G0206; 77065

== ENCOUNTER 2017-02-15 14:57 | Inpatient (IN) | payer OTHER ==
[~2017-02-15] VITALS: Ht 152.4 cm; Wt 76.2 kg
[2017-02-15] MEDS ORDERED: NITROGLYCERIN SUBLINGUAL 0.4 MG BOTTLE OF 25. SL ONE (16:00)
[2017-02-15] MEDS: FUROSEMIDE 20 MG/2 ML VIAL IVP STA (16:19)
[2017-02-15] MEDS ORDERED: MAG HYDROX/ALUMINUM HYD/SIMETH 30 ML ORAL.SUSP PO PRN (16:30)
[2017-02-15] MEDS ORDERED: 0.9 % SODIUM CHLORIDE 10 ML DISP.SYRIN. IV PRN (16:30)
[2017-02-15] MEDS ORDERED: ONDANSETRON PF 4 MG/2 ML VIAL. IV PRN (16:30)
[2017-02-15] MEDS ORDERED: DOCUSATE SODIUM 100 MG CAPSULE PO PRN (16:30)
[2017-02-15] MEDS ORDERED: MORPHINE SULFATE 4 MG/ML DISP.SYRIN. IV PRN (16:30)
[2017-02-15] MEDS ORDERED: NITROGLYCERIN SUBLINGUAL 0.4 MG BOTTLE OF 25. SL PRN ×2 (16:30→17:45)
[2017-02-15] MEDS ORDERED: ZOLPIDEM 5 MG TABLET. PO PRN (16:30)
[2017-02-15] MEDS ORDERED: MORPHINE SULFATE 2 MG/ML DISP.SYRIN. IV PRN (16:30)
--- NOTE | 2017-02-15 16:41 | EKG ---
[facility] [address] [place] [address] Test Date: 2017-02-15 Test Time: 15:34:24 Pat Name: RAYNA RIZVI Department: Room: 205 1 Gender: F Bun Panner: RAHEEM : 1960 Requested By: SARAH BETH RENEE Order Number: [id number] Reading MD: Measurements Intervals [place] Rate: 72 P: 44 KS: 162 QRS: 32 QRSD: 92 T: 2 QT: 412 QTc: 453 Interpretive Statements SINUS RHYTHM QRS(T) CONTOUR ABNORMALITY CONSIDER ANTEROSEPTAL MYOCARDIAL DAMAGE T ABNORMALITY IN INFERIOR LEADS ABNORMAL ECG RI6.01 Unconfirmed report Compared to ECG 01/16/2017 05:38:38 No significant changes
[2017-02-15 16:55] LABS: HEMATOCRIT 29.1 % (36.0-47.0); HEMOGLOBIN 9.9 g/dL (12.0-15.5); RED BLOOD COUNT 3.26 x10^6/uL (3.50-5.40); WHITE BLOOD COUNT 5.2 x10^3/uL (4.0-11.0)
[2017-02-15 17:10] LABS: CALCIUM 8.3 mg/dL (8.5-10.1); CREATININE 0.9 mg/dL (0.6-1.0); MAGNESIUM 2.3 mg/dL (1.8-2.4); POTASSIUM 4.4 mmol/L (3.5-5.1)
--- NOTE | 2017-02-15 17:10 | PDOC ---
CARDIO Progress Notes Date and Time Date of Service 02/15/2017 Time of Evaluation 1650 Subjective Subjective: Other (admitted from cardiology office due to CP and CHF) Comments: substernal CP with dyspnea POA; dull & tight Vitals Weight Weight [ ] Review of Systems Constitutional: yes: alert, oriented Ears/Nose/Throat: Yes: no symptom reported Eyes: Yes: no symptom reported Pulmonary: Yes dyspnea Cardiovascular: Yes edema, Yes chest pain Skin: Yes no symptom reported Physical Exam HEENT: Neck Supple W Full Motion Chest: Symmetric LUNGS: Other (soft basilar crackles posteriorly) Heart: S1S2, RRR, no murmurs, other (tele: SR) Abdomen: Soft N/T Extremities: Other (bilateral LE edema 2-3+) Neurology: alert, oriented, follow commands Assessment Assessment PLEASE SEE OFFICE NOTE OF 02/15/2017 FOR DETAILS 1. angina dull tightness POA history of PCI/KALANI to FOOT ROENTGENOLOGIST of RCA; diagonal branch and OM branch stable BP and rhythm - given SL NTG 0.4 mg x1 and then repeated 5 minutes later with resolution of symptoms stat EKG without acute changes serial enzymes ordered and well as admission labs continue DAPT, BB, ARB and aspirin therapy Lexiscan MPI for tomorrow if enzymes rule out AMI 2. acute on chronic systolic CHF LVEF 35% on echo 09/2016 check NT-proBNP and CXR IV dose of furosemide tonight fluid restriction re-evaluate in a.m. and then order further diuretics R>L LE edema - venous Duplex to evaluate for DVT 3. ischemic CMP LVEF as noted above has [facility] ICD for prevention of SCD continue medical management 4. HTN control with meds home meds have been resumed 5. HLD continue statin therapy check FLP in a.m 6. hypothyroidism home med resumed 7. DM, II per PCP - Vences 8. obesity Will transfer hospital care to her usual PCP - Vences; rather than hospitalist. SARAH BETH RENEE APRN Feb 15, 2017 17:09
[2017-02-15] MEDS ORDERED: DEXTROSE 50% 25 GM / 50ML DISP.SYRIN. IV PRN (17:45)
[2017-02-15 17:50] VITALS: BP 125/68
[2017-02-15] MEDS: ACETAMINOPHEN 325 MG TABLET. PO PRN (18:25)
[2017-02-15 19:20] VITALS: BP 120/60
[2017-02-15] MEDS: ATORVASTATIN CALCIUM 40 MG TABLET. PO SCH (20:11)
[2017-02-15] MEDS: GABAPENTIN 300 MG CAPSULE. PO SCH (20:11)
[2017-02-15] MEDS: CARVEDILOL 12.5 MG TABLET PO SCH (20:12)
[2017-02-15] MEDS: INSULIN DETEMIR 300 UNITS/3 ML INSULN.PEN. SQ SCH (20:17)
[2017-02-15] MEDS ORDERED: FUROSEMIDE 20 MG/2 ML VIAL IVP STA (20:34)
[2017-02-15 23:15] VITALS: BP 143/68
[2017-02-16] VITALS (13 sets, daily range): BP systolic 112–175; BP diastolic 53–115
[2017-02-16] MEDS: ACETAMINOPHEN 325 MG TABLET. PO PRN ×3 (01:02→16:33)
[2017-02-16 04:59] LABS: HEMATOCRIT 28.5 % (36.0-47.0); HEMOGLOBIN 9.5 g/dL (12.0-15.5); RED BLOOD COUNT 3.16 x10^6/uL (3.50-5.40); RED CELL DISTRIBUTION WIDTH 15.1 % (11.5-14.5); WHITE BLOOD COUNT 5.2 x10^3/uL (4.0-11.0)
[2017-02-16 05:34] LABS: CALCIUM 8.5 mg/dL (8.5-10.1); CREATININE 0.9 mg/dL (0.6-1.0); MAGNESIUM 2.4 mg/dL (1.8-2.4); POTASSIUM 3.8 mmol/L (3.5-5.1)
[2017-02-16 06:01] LABS: CHOLESTEROL/HDL RATIO 1.9
[2017-02-16] MEDS: LEVOTHYROXINE 150 MCG TABLET PO SCH (06:16)
[2017-02-16] MEDS ORDERED: PANTOPRAZOLE 40 MG TABLET. PO SCH (07:30)
[2017-02-16] MEDS ORDERED: CARVEDILOL 3.125 MG TABLET PO SCH (08:00)
[2017-02-16] MEDS ORDERED: CLOPIDOGREL BISULFATE 75 MG TABLET PO SCH ×2 (08:00→09:00)
[2017-02-16] MEDS ORDERED: ASPIRIN 81 MG PO SCH (08:00)
[2017-02-16] MEDS: INSULIN ASPART 300 UNITS/3 ML INSULN.PEN SQ SCH ×3 (08:00→17:00)
[2017-02-16] MEDS: PANTOPRAZOLE 40 MG TABLET. PO SCH (08:11)
[2017-02-16] MEDS: ASPIRIN 81 MG TAB.CHEW PO SCH (08:11)
--- NOTE | 2017-02-16 08:23 | RAD ---
Indication congestive heart failure. Shortness of breath. A single view of the chest was obtained. Comparison is made to an exam 01/16/2017. There is unchanged cardiomegaly. There is no congestive heart failure on today's exam. There is no consolidated pneumonia. Significant pleural fluid is not seen. Defibrillating and bipolar cardiac pacing device is noted. IMPRESSION: Unchanged cardiomegaly. No acute or focal process seen
[2017-02-16] MEDS ORDERED: REGADENOSON 0.4 MG/5 ML DISP.SYRIN. IV ONE (08:30)
[2017-02-16] MEDS ORDERED: LOSARTAN POTASSIUM 25 MG TABLET. PO SCH (09:00)
[2017-02-16] MEDS ORDERED: FUROSEMIDE 40 MG/4 ML VIAL IVP SCH (09:00)
[2017-02-16] MEDS ORDERED: ATORVASTATIN CALCIUM 40 MG TABLET. PO SCH (09:00)
[2017-02-16] MEDS ORDERED: LEVOTHYROXINE 150 MCG TABLET PO SCH (09:00)
[2017-02-16] MEDS ORDERED: FLUOXETINE HCL 20 MG CAPSULE PO SCH (09:00)
[2017-02-16] MEDS: FLUOXETINE HCL 20 MG CAPSULE PO SCH (11:21)
[2017-02-16] MEDS: GABAPENTIN 300 MG CAPSULE. PO SCH ×2 (11:21→20:57)
--- NOTE | 2017-02-16 11:21 | PDOC ---
CARDIO Progress Notes Date and Time Date of Service 02/16/2017 Time of Evaluation 1100 Subjective Subjective: No Chest Pain, No shortness of breath, No Palpitations, No Dizziness, Other (reproducible left chest pain with palpation) Vitals Vitals Vital Signs Date Time Temp Pulse Resp B/P Pulse Ox O2 Delivery O2 Flow Rate FiO2 02/16/17 08:00 Room Air 02/16/17 07:46 97.8 66 14 145/69 94 97.8 Weight Weight [ ] Input and Output Intake and Output Intake and Output 02/16/17 07:00 Intake Total 240 ml Output Total 900 ml Balance -660 ml Intake Oral 240 ml Output Urine Total 900 ml Laboratory Labs Laboratory Tests Test 02/15/17 16:45 02/15/17 18:17 02/15/17 20:09 02/15/17 22:30 White Blood Count 5.2x10^3/uL (4.0-11.0) Red Blood Count 3.26x10^6/uL (3.50-5.40) Hemoglobin 9.9g/dL (12.0-15.5) Hematocrit 29.1% (36.0-47.0) Mean Corpuscular Volume 89fL (79-100) Mean Corpuscular Hemoglobin 31pg (25-35) Mean Corpuscular Hemoglobin Concent 34g/dL (31-37) Red Cell Distribution Width 15.0% (11.5-14.5) Platelet Count 190x10^3/uL (140-400) Sodium Level 140mmol/L (136-145) Potassium Level 4.4mmol/L (3.5-5.1) Chloride Level 105mmol/L (98-107) Carbon Dioxide Level 30mmol/L (21-32) Anion Gap 5 (6-14) Blood Urea Nitrogen 27mg/dL (7-20) Creatinine 0.9mg/dL (0.6-1.0) Estimated GFR (Cockcroft-Gault) 65.0 Glucose Level 58mg/dL (70-99) Calcium Level 8.3mg/dL (8.5-10.1) Magnesium Level 2.3mg/dL (1.8-2.4) Creatine Kinase 201U/L (26-192) Creatine Kinase MB (Mass) 4.0ng/mL (0.0-3.6) Creatine Kinase MB Relative Index 2.0% (0-4) Troponin I Quantitative < 0.017ng/mL (0.000-0.055) 0.022ng/mL (0.000-0.055) VC-Nql-N-Type Natriuretic Peptide 4312pg/mL (0-124) Glucose (Fingerstick) 96mg/dL (70-99) 205mg/dL (70-99) Test 02/16/17 04:30 02/16/17 05:22 02/16/17 05:50 02/16/17 07:48 White Blood Count 5.2x10^3/uL (4.0-11.0) Red Blood Count 3.16x10^6/uL (3.50-5.40) Hemoglobin 9.5g/dL (12.0-15.5) Hematocrit 28.5% (36.0-47.0) Mean Corpuscular Volume 90fL (79-100) Mean Corpuscular Hemoglobin 30pg (25-35) Mean Corpuscular Hemoglobin Concent 33g/dL (31-37) Red Cell Distribution Width 15.1% (11.5-14.5) Platelet Count 183x10^3/uL (140-400) Sodium Level 141mmol/L (136-145) Potassium Level 3.8mmol/L (3.5-5.1) Chloride Level 107mmol/L (98-107) Carbon Dioxide Level 30mmol/L (21-32) Anion Gap 4 (6-14) Blood Urea Nitrogen 26mg/dL (7-20) Creatinine 0.9mg/dL (0.6-1.0) Estimated GFR (Cockcroft-Gault) 65.0 Glucose Level 46mg/dL (70-99) Calcium Level 8.5mg/dL (8.5-10.1) Magnesium Level 2.4mg/dL (1.8-2.4) Troponin I Quantitative < 0.017ng/mL (0.000-0.055) Triglycerides Level 63mg/dL (0-150) Cholesterol Level 135mg/dL (0-200) LDL Cholesterol, Calculated 50mg/dL (0-100) VLDL Cholesterol, Calculated 13mg/dL (0-40) HDL Cholesterol 72mg/dL (40-60) Cholesterol/HDL Ratio 1.9 Glucose (Fingerstick) 22mg/dL (70-99) 103mg/dL (70-99) 34mg/dL (70-99) Test 02/16/17 08:09 02/16/17 10:08 Glucose (Fingerstick) 163mg/dL (70-99) 87mg/dL (70-99) Review of Systems Constitutional: yes: alert, oriented Ears/Nose/Throat: Yes: no symptom reported Eyes: Yes: no symptom reported Pulmonary: Yes dyspnea Cardiovascular: Yes edema, Yes chest pain Skin: Yes no symptom reported Physical Exam HEENT: Neck Supple W Full Motion Chest: Symmetric LUNGS: Clear to Auscultation Heart: S1S2, RRR (SR no rhtyhm ectopies), no murmurs, other (tele: SR) Abdomen: Soft N/T Extremities: Other (2+ bilateral LE pitting edema) Neurology: alert, oriented, follow commands Assessment Assessment 1. Unstable angina: Positive stress test. Currently asymptomatic. 2. CAD: hx of PCI/KALANI to MANAGER PARK of RCA; diagonal branch and OM branch. 04/16/2015 3. ICM: last EF 35% 09/2016. Compensated 4. Acute on chronic systolic CHF: Compensated. Refractory episode is multifactorial with likely contributing ischemia 5. AICD insitu: normal functioning device with recent interrogation with normal impedances. 5. Leg swelling: R>L 6. HTN: controlled 7. HLP: on goal 8. DM2/obesity 9. Hypoglycemic reaction: BG 22, 34- would contribute to refractory CHF. 10. Tobaccoism Recommendations 1. Continue with Na restriction and FR. Lifestyle modification. 2. [facility] today, risks and benefits reviewed and agreeable. 3. Venous Doppler to LE r/o DVT 4. Continue with secondary prevention 5. Continue with DAPT. Switch to po diuretic tomorrow. 6. Avoid tight BG control 7. Strongly encouraged smoking cessation. Encouraged home exercise therapy ALFONSO GUPTA SENIOR SOFTWARE DEVELOPER Feb 16, 2017 11:21
[2017-02-16] MEDS: FERROUS SULFATE 325 MG TABLET PO SCH ×3 (11:22→17:47)
[2017-02-16] MEDS: POTASSIUM CHLORIDE 10 MEQ TABLET.ER. PO SCH (11:22)
[2017-02-16] MEDS: LOSARTAN POTASSIUM 25 MG TABLET. PO SCH (11:22)
[2017-02-16] MEDS: FLUTICASONE 50MCG/NASAL SPRAY 16GM BOTTLE. NS SCH (11:23)
[2017-02-16] MEDS: CARVEDILOL 12.5 MG TABLET PO SCH (11:28)
--- NOTE | 2017-02-16 11:41 | RAD ---
APPROVED REPORT Test Type: Pharmacological Stress Nurse/Tech: Natali Huffman R.N. Test Indications: chest pain Cardiac History: stents x 4, htn, pacemaker, dm Medications: see ehr Medical History: see ehr Resting ECG: sr Resting Heart Rate: 66 bpm Resting Blood Pressure: 139/69mmHg Pretest Chest Pain: No chest pain Nurse/Tech Notes lungs cta, heart tones regular Consent: The procedure was explained to the patient in lay terms. Informed consent was witnessed. Miky eout was entered into [employer]. History and Stress Test performed by Natali Huffman R.N. Pharm. Details Pharmacologic stress testing was performed using 0.4mg per 5ml of regadenoson given intravenously ove r 7-10 seconds. Stress Symptoms No chest pain or symptoms.Dyspnea POST EXERCISE Reason for Termination: Infusion complete Target HR: No Max HR: 97 bpm Max Blood Pressure: 141/77mmHg Chest Pain: No. Arrhythmia: No. ST Change: No. INTERPRETATION Stress EKG Conclusion: Stress EKG suggestive of inferior baseline ischemia. Imaging Protocol IMAGE PROTOCOL: Rest Tc-99m/stress Tc-99m 1 day Rest: Stress: Viability: Radiopharm.Tc99m [id number] Sestamibi Dose12.6mCi 33.7mCi Duration 15min. 10min. Img Date 02/16/2017 02/16/2017 Inj-Img [id number]. 60min. Rest Admin Site:IV - Left WristAdministrator:IVAN Gerardo Stress Admin Site: IV - Left WristAdministrator: EMILI Muro, ARRT (R)(N) STRESS DATA End Diast. Vol.213.0mlAv. Heart Rate73.0bpm End Syst. Vol.118.0mlCO Index BSA0.0L/min Myocardial Sgie664.0gEject. Qovzcikk95.0% Stress Rates Pk. Fill Rate2.45EDV/secLVtime Pk. Fill 232.79msec Pk. Empty Rate2.02ESV/secLVtime Pk. Nrttd009.94msec 11/28 Pk. Fill0.76EDV/sec Stress Scores Regional WT2.00Summed WT14.00 Regional WM0.00Summed WM9.00 LV Perfusion There is a large sized, mostly fixed defect involving the inferior, inferolateral defect suggestive o f prior infarct with mild zabrina-infarct reversibility. Wall Motion Mild global hypokinesis. EF 45%. LV Perfusion 1 TCD/TID: 1.29Yes LV Perf. Quant 17 Seg. SSS9.00 17 Seg. SRS9.00 17 Seg. SDS1.00 Stress Defect Extent (% LAD)4.40Rest Defect Extent (% LAD)2.50Rev. Defect Extent (% LAD)0.60 Stress Defect Extent (% LCX) 45.00Rest Defect Extent (% LCX)32.50Rev. Defect Extent (% LCX)11.30 Stress Defect Extent (% RCA)11.10Rest Defect Extent (% RCA)23.30Rev. Defect Extent (% RCA)0.00 Stress Defect Extent (% BHARATI)18.30Rest Defect Extent (% BHARATI)19.30Rev. Defect Extent (% BHARATI)2.20 Other Information Quality:Fair Risk Assessment: Moderate-High Risk Conclusion 1. Stress EKG suggestive but not conclusive for ischemia. 2. Large fixed inferior defect with TID raising possibility of multivessel disease 3. Motion artifact 4. Mild LV dysfunction EF 45% 5. Moderate to high risk study.
[2017-02-16] MEDS ORDERED: LIDOCAINE 2% 20 ML VIAL. ONE (14:48)
[2017-02-16] MEDS ORDERED: MIDAZOLAM HCL 2 MG/2 ML VIAL. ONE (15:05)
[2017-02-16] MEDS ORDERED: NITROGLYCERIN 200 MCG/2 ML SYRINGE FOR CATH/VASC LAB. ONE ×2 (15:06→15:42)
[2017-02-16] MEDS ORDERED: FENTANYL PF 100 MCG/2 ML VIAL. ONE (15:06)
[2017-02-16] MEDS ORDERED: VERAPAMIL 5 MG/2 ML VIAL. ONE (15:06)
[2017-02-16] MEDS ORDERED: HEPARIN for IV BOLUS 10,000 UNIT/10 ML VIAL. ONE (15:06)
[2017-02-16] MEDS ORDERED: BIVALIRUDIN 250 MG VIAL. IV ONE ×2 (15:20→15:30)
[2017-02-16] MEDS ORDERED: HEPARIN for IV BOLUS 10,000 UNIT/10 ML VIAL. IART ONE (15:30)
[2017-02-16] MEDS ORDERED: NITROGLYCERIN 200 MCG/2 ML SYRINGE FOR CATH/VASC LAB. IART ONE (15:30)
[2017-02-16] MEDS ORDERED: CONTRAST GIVEN MC PRN (15:30)
[2017-02-16] MEDS ORDERED: VERAPAMIL 5 MG/2 ML VIAL. IART ONE (15:30)
[2017-02-16] MEDS ORDERED: LIDOCAINE 2% 20 ML VIAL. IJ ONE (15:30)
[2017-02-16] MEDS ORDERED: IOHEXOL 300 MG/ML 100ML VIAL. IART ONE (15:30)
[2017-02-16] MEDS ORDERED: FENTANYL PF 100 MCG/2 ML VIAL. IV ONE (15:30)
[2017-02-16] MEDS ORDERED: MIDAZOLAM HCL 2 MG/2 ML VIAL. IV ONE (15:30)
--- NOTE | 2017-02-16 15:36 | RAD ---
Bilateral lower extremity venous ultrasound, 02/16/2017: History: Bilateral leg swelling Duplex evaluation of the deep veins in the lower extremities was performed including grayscale, color-flow and spectral Doppler analysis. The femoral and popliteal veins demonstrate normal compressibility and normal responses to distal augmentation maneuvers. Color imaging of those vessels shows no evidence of intraluminal clot. The visualized deep veins in both calves are patent. IMPRESSION: There is no sonographic evidence of deep vein thrombosis in either lower extremity.
[2017-02-16] MEDS ORDERED: PRASUGREL 10 MG TABLET. ONE (15:37)
[2017-02-16] MEDS ORDERED: PRASUGREL 10 MG TABLET. PO ONE (15:45)
[2017-02-16] MEDS: CARVEDILOL 3.125 MG TABLET PO SCH (16:47)
--- NOTE | 2017-02-16 17:12 | CARD ---
APPROVED REPORT Procedure(s) performed: [facility] + Coronary angiography PTCA/PCI of the LCx PTCA/PCI of the LAD HISTORY The patient is a 56 year-old female with a history of : previous KS, previous CHF, coronary artery di sease, tobacco history() , previous PCI (The PCI date was ), hypertension, dyslipidemia. INDICATION The indication(s) include : positive stress test. PROCEDURE NARRATIVE The patient was brought electively to the cardiac catheterization lab. A timeout was performed confi rming the patient's name, date of , procedure, and site of procedure. All necessary personnel w ere wearing the appropriate protective equipment and radiation monitor devices. After explaining the risks and benefits of the procedure and alternatives, informed consent was obtained. (See nursing no matthew for medications administered). The right wrist was sterilely prepped and draped in the usual fas hion. The right wrist was infiltrated with 1 mL of 2% lidocaine for subcutaneous anesthesia. A 6 Fr ench Terumo glide sheath was inserted into the right radial artery without difficulty. Right and lef t coronary angiography was performed using a 6Fr TIG 4.0 catheter. HEMODYNAMICS: LVEDP 18 mm Hg No gradient on LV to aortic pullback. LEFT VENTRICULOGRAM: Deferred due to EF available from stress test. CORONARY ANGIOGRAPHY: LM is a large caliber vessel with normal angiographic appearance. LAD is a large caliber vessel with a proximal to mid 50% stenosis. D1 is a moderate caliber vessel with normal angiographic apeparance. LCx is a moderate caliber non-dominant vessel with a proximal 90% stenosis involving the previously p laced stent extending into OM1 OM1 is a moderate caliber vessel with normal angiographic appearance. RCA is a large caliber dominant vessel with patent previously placed stents. INTERVENTIONAL TECHNIQUE: PCI left circumflex Based upon the presentation, positive stress test and angiographic findings and intervention was perf ormed on the left circumflex. Bivalirudin was administered for anticoagulation. Through a 6 [place] EB U 3.5 guide catheter a 0.014 inch pro-water guidewire was advanced to the distal OM1. Serial balloon angioplasty was performed with a 2.0 and 2.5 balloons at high pressure. Next, the lesion was stented with a Xience 2.5/23 KALANI at 14 juliana. The proximal aspect of the stent was then post-dilated with a NC balloon at 18 juliana. Post-PCI angiography revealed excellent stent expansion with PEPE 3 flow in the ve ssel. INTERVENTIONAL TECHQNIQUE: PCI LAD Due to the intermediate stenosis on the angiogram and suggestion of balanced ischemia with transient ischemic dilatation on the stress test and ischemic evaluation was performed with physiologic testing using a instantaneous wave free ratio measurement in the [employer]. Through the 6 [place]ian EBU 3.5 guid e catheter a pressure wire was advanced to the distal LAD and and IFR was measured at 0.83 confirming significant physiologic stenosis. Therefore, the lesion was then angioplastied with a 2.5 mm noncomp liant balloon and then stented with a 2.5 x 23 mm Xience drug-eluting stent at 14 juliana. The lesion was then postdilated with a 2.5 noncompliant balloon in the proximal half with a high-pressure inflation at 18 at the spheres. Final post-PCI angiography revealed excellent stent expansion with PEPE 3 flow in all vessels. All catheter exchanges and advancements were performed over a guidewire. At case completion the righ t radial sheath was removed and a Terumo radial band was applied with 13 ml of air. The patient tole rated the procedure well and there were no immediate complications. Conclusion 1. Mild left ventricular pressure overload 2. Three vessel CAD with positive iFR of the LAD at 0.83 3. Successful PCI of the LCx and LAD with implantation of drug eluting stents. Recommendations Aggressive medical therapy ASA 81mg daily indefinitely Prasugrel 10mg daily x 30 days and then transition back to Plavix 75mg daily, prefer indefinite thera py with DAPT. Cardiac rehab.
[2017-02-16] MEDS ORDERED: hydrALAZINE 20 MG/ML VIAL. IVP PRN (17:45)
[2017-02-16] MEDS ORDERED: FENTANYL PF 100 MCG/2 ML VIAL. IV PRN ×2 (17:45)
[2017-02-16] MEDS: silver sulfADIAZINE 1% CREAM 25GM TUBE. TP SCH (17:53)
[2017-02-16] MEDS: ATORVASTATIN CALCIUM 40 MG TABLET. PO SCH (20:57)
[2017-02-16] MEDS: INSULIN DETEMIR 300 UNITS/3 ML INSULN.PEN. SQ SCH (21:05)
[2017-02-17 03:45] VITALS: BP 122/51
[2017-02-17 07:44] VITALS: BP 125/67
[2017-02-17] MEDS: INSULIN ASPART 300 UNITS/3 ML INSULN.PEN SQ SCH (08:00)
[2017-02-17] MEDS ORDERED: PRASUGREL 10 MG TABLET. PO SCH (08:00)
[2017-02-17] MEDS: FLUTICASONE 50MCG/NASAL SPRAY 16GM BOTTLE. NS SCH (08:10)
[2017-02-17] MEDS: FLUOXETINE HCL 20 MG CAPSULE PO SCH (08:10)
[2017-02-17] MEDS: silver sulfADIAZINE 1% CREAM 25GM TUBE. TP SCH (08:10)
[2017-02-17] MEDS: POTASSIUM CHLORIDE 10 MEQ TABLET.ER. PO SCH (08:11)
[2017-02-17] MEDS: CARVEDILOL 3.125 MG TABLET PO SCH (08:11)
[2017-02-17] MEDS: PANTOPRAZOLE 40 MG TABLET. PO SCH (08:11)
[2017-02-17] MEDS: LOSARTAN POTASSIUM 25 MG TABLET. PO SCH (08:12)
[2017-02-17] MEDS: LEVOTHYROXINE 150 MCG TABLET PO SCH (08:12)
[2017-02-17] MEDS: FERROUS SULFATE 325 MG TABLET PO SCH (08:12)
[2017-02-17] MEDS: ASPIRIN 81 MG TAB.CHEW PO SCH (08:12)
[2017-02-17] MEDS: GABAPENTIN 300 MG CAPSULE. PO SCH (08:12)
--- NOTE | 2017-02-17 08:31 | PDOC3 ---
ALFONSO GUPTA SAMPLE TAILOR 02/17/17 0831: Discharge Summary Visit Information Date of Admission: Feb 16, 2017 Date of Discharge: Feb 17, 2017 Admitting Diagnosis: Unstable angina, positive stress test,Acute systolic CHF Final Diagnosis Problems Medical Problems: (1) Acute on chronic congestive heart failure Status: Acute (2) Chest pain Status: Acute 3. Unstable angina, positive MPI 4. CAD/ICM 5 AICD 6. Post PCI/KALANI Brief Hospital Course Allergies Allergies Coded Allergies Type Severity Reaction Last Updated Verified lisinopril Adverse Reaction Mild COUGH 01/16/17 Yes Vital Signs Vital Signs Date Time Temp Pulse Resp B/P Pulse Ox O2 Delivery O2 Flow Rate FiO2 02/17/17 08:12 76 125/67 02/17/17 07:44 98.5 18 94 Room Air 98.5 02/17/17 04:27 2.0 Lab Results Laboratory Tests Test 02/15/17 16:45 02/15/17 18:17 02/15/17 20:09 02/15/17 22:30 White Blood Count 5.2x10^3/uL (4.0-11.0) Red Blood Count 3.26x10^6/uL (3.50-5.40) Hemoglobin 9.9g/dL (12.0-15.5) Hematocrit 29.1% (36.0-47.0) Mean Corpuscular Volume 89fL (79-100) Mean Corpuscular Hemoglobin 31pg (25-35) Mean Corpuscular Hemoglobin Concent 34g/dL (31-37) Red Cell Distribution Width 15.0% (11.5-14.5) Platelet Count 190x10^3/uL (140-400) Sodium Level 140mmol/L (136-145) Potassium Level 4.4mmol/L (3.5-5.1) Chloride Level 105mmol/L (98-107) Carbon Dioxide Level 30mmol/L (21-32) Anion Gap 5 (6-14) Blood Urea Nitrogen 27mg/dL (7-20) Creatinine 0.9mg/dL (0.6-1.0) Estimated GFR (Cockcroft-Gault) 65.0 Glucose Level 58mg/dL (70-99) Calcium Level 8.3mg/dL (8.5-10.1) Magnesium Level 2.3mg/dL (1.8-2.4) Creatine Kinase 201U/L (26-192) Creatine Kinase MB (Mass) 4.0ng/mL (0.0-3.6) Creatine Kinase MB Relative Index 2.0% (0-4) Troponin I Quantitative < 0.017ng/mL (0.000-0.055) 0.022ng/mL (0.000-0.055) DN-Mlk-Y-Type Natriuretic Peptide 4312pg/mL (0-124) Glucose (Fingerstick) 96mg/dL (70-99) 205mg/dL (70-99) Test 02/16/17 04:30 02/16/17 05:22 02/16/17 05:50 02/16/17 07:48 White Blood Count 5.2x10^3/uL (4.0-11.0) Red Blood Count 3.16x10^6/uL (3.50-5.40) Hemoglobin 9.5g/dL (12.0-15.5) Hematocrit 28.5% (36.0-47.0) Mean Corpuscular Volume 90fL (79-100) Mean Corpuscular Hemoglobin 30pg (25-35) Mean Corpuscular Hemoglobin Concent 33g/dL (31-37) Red Cell Distribution Width 15.1% (11.5-14.5) Platelet Count 183x10^3/uL (140-400) Sodium Level 141mmol/L (136-145) Potassium Level 3.8mmol/L (3.5-5.1) Chloride Level 107mmol/L (98-107) Carbon Dioxide Level 30mmol/L (21-32) Anion Gap 4 (6-14) Blood Urea Nitrogen 26mg/dL (7-20) Creatinine 0.9mg/dL (0.6-1.0) Estimated GFR (Cockcroft-Gault) 65.0 Glucose Level 46mg/dL (70-99) Calcium Level 8.5mg/dL (8.5-10.1) Magnesium Level 2.4mg/dL (1.8-2.4) Troponin I Quantitative < 0.017ng/mL (0.000-0.055) Triglycerides Level 63mg/dL (0-150) Cholesterol Level 135mg/dL (0-200) LDL Cholesterol, Calculated 50mg/dL (0-100) VLDL Cholesterol, Calculated 13mg/dL (0-40) HDL Cholesterol 72mg/dL (40-60) Cholesterol/HDL Ratio 1.9 Glucose (Fingerstick) 22mg/dL (70-99) 103mg/dL (70-99) 34mg/dL (70-99) Test 02/16/17 08:09 02/16/17 10:08 02/16/17 12:11 02/16/17 16:50 Glucose (Fingerstick) 163mg/dL (70-99) 87mg/dL (70-99) 134mg/dL (70-99) 89mg/dL (70-99) Test 02/16/17 20:43 02/17/17 07:45 Glucose (Fingerstick) 232mg/dL (70-99) 95mg/dL (70-99) Laboratory Tests Test 02/16/17 10:08 02/16/17 12:11 02/16/17 16:50 02/16/17 20:43 Glucose (Fingerstick) 87mg/dL (70-99) 134mg/dL (70-99) 89mg/dL (70-99) 232mg/dL (70-99) Test 02/17/17 07:45 Glucose (Fingerstick) 95mg/dL (70-99) Brief Hospital Course This is a pleasant 56 yo female admitted for complains of typical chest pain. She was seen in our office with this complain as well as symptoms of acute CHF. She is significant for CAD and ICM and had PCI in 2014 with stent to LAD/OM/ Diagonal and AICD placed in the past as well. Her CHF was treated and compensated after IV diuretic therapy. Her serial cardiac enzymes and EKG showed no acute changes but her stress test showed reversible defects which is contributing to her refractory CHF prompting LHC. PCI performed via right radial approach which she tolerated without complications and KALANI was placed to LCx and LAD. Pt denies any discomfort, no SOA, no CP. No significant rhythm ectopies. AOX3, lungs are clear to auscultation with improved LE edema. Venous doppler to LE also is negative for DVT. VSS. Right radial arteriotomy site intact without erythema/swelling. Neurovascular status to right hand is intact. Effient for 30 days then followed by plavix in addition to 81 mg ECASA. Continue with current secondary prevention measures. May resume metformin Sunday. Encouraged cardiac rehab and reinforced lifestyle modifications. Post cath instructions. Follow up in office in 4 weeks. Also encouraged to f/u with her PCP as an outpt to reevaluate her DM regimen to avoid periods of hypoglycemia; as well as discuss alternative to prozac as this could decrease effectiveness of plavix. Will reevaluated DAPT need on her next appointment. Discharge Information Condition at Discharge: Stable Follow Up: Weeks (4) Disposition/Orders: D/C to Home Scheduled ([Aspirin]) 81 MG PO DAILYWBKFT Atorvastatin Calcium (Atorvastatin Calcium) 1 TAB PO DAILY (Reported) Carvedilol (Coreg) 3.125 MG PO BIDWMEALS Clopidogrel Bisulfate (Clopidogrel) 1 TAB PO DAILY Ferrous Sulfate (Feosol) 325 MG PO TIDWMEALS Fluoxetine Hcl (Fluoxetine Hcl) 1 CAP PO DAILY (Reported) Fluticasone Propionate (Fluticasone Propionate Nasal [place]) 2 SPRAY NS DAILY Furosemide (Lasix) 40 MG PO DAILY (Reported) Gabapentin (Gabapentin) 300 MG PO BID (Reported) Glimepiride (Glimepiride) 1 TAB PO DAILY (Reported) Insulin Glargine,Hum.rec.anlog (Lantus Solostar) 30 UNIT SQ QHS (Reported) Losartan Potassium (Losartan Potassium) 25 MG PO DAILY (Reported) Metformin Hcl (Metformin Hcl) 1 TAB PO BID (Reported) Pantoprazole Sodium (Pantoprazole Sodium) 40 MG PO DAILYAC Potassium Chloride (Potassium Chloride) 1 TAB PO DAILY (Reported) Prasugrel Hcl (Effient) 1 TAB PO DAILY Scheduled PRN Nitroglycerin (NITROGLYCERIN SubLingual) 0.4 MG SL PRN Q5MIN PRN PRN CHEST PAIN (Reported) Miscellaneous Medications Cholecalciferol (Vitamin D3) (Vitamin D) 5,000 UNIT PO (Reported) Levothyroxine Sodium (Levothyroxine Sodium) (Reported) Patient Instructions Patient Instructions GENERAL INSTRUCTIONS: 1. Your dressing should be removed prior to leaving the hospital. 2. It is OK to shower the day after your procedure. 3. If you received stents, be sure to carry your stent information card with you in your wallet/purse at all times. 4. Call the office immediately at [phone] if you notice any fever or if there is redness, worsening tenderness/pain, increased bruising, or drainage from the puncture site. 5. Should you have bleeding from the site, lie down immediately & put pressure on the site. The pressure should be hard enough to stop the bleeding. Have the nearest person call 911. DO NOT try to drive to the ER with active bleeding. 6. If you notice a change in color, coolness to touch, or loss of feeling in the affected extremity, come to the emergency room. Please have someone drive you or call 911 if no one is available. DO NOT drive yourself. 7. If you normally take glucophage (metformin), please do not take this medicine for 48 hours following your procedure. 8. DO NOT STOP TAKING YOUR PLAVIX OR ASPIRIN UNLESS IT IS CLEARED BY A TENNIS COACH OF YOUR COLORIST AT OUR OFFICE. 9. QUIT SMOKING: the [employer], [employer], & [employer] have cessation resources available on their websites 10. Please have someone available to drive you home from the hospital as you may be limited by sedation medications given during the procedure. Radial Artery (Wrist) access: 1. No pushing, pulling, lifting, typing, or anything that requires repetitive use/movement of the affected wrist for 3 days following your procedure. 2. OK to drive the day following your procedure. (This is because of effects of sedating medications.) Call the office at [phone] for any questions or concerns. LINDSAY LEE MD 02/18/17 0844: Discharge Summary Brief Hospital Course Brief Hospital Course Pt. seen and examined. Agree with above LEAD C DEVELOPER note. No acute events overnight. Reports that CP is much better. Denies any bleeding issues. Normal cardiac exam. R wrist is c/d/i f/u in 6 weeks in clinic. Discharge Information Scheduled ([Aspirin]) 81 MG PO DAILYWBKFT Atorvastatin Calcium (Atorvastatin Calcium) 1 TAB PO DAILY (Reported) Carvedilol (Coreg) 3.125 MG PO BIDWMEALS Clopidogrel Bisulfate (Clopidogrel) 1 TAB PO DAILY Ferrous Sulfate (Feosol) 325 MG PO TIDWMEALS Fluoxetine Hcl (Fluoxetine Hcl) 1 CAP PO DAILY (Reported) Fluticasone Propionate (Fluticasone Propionate Nasal [place]) 2 SPRAY NS DAILY Furosemide (Lasix) 40 MG PO DAILY (Reported) Gabapentin (Gabapentin) 300 MG PO BID (Reported) Glimepiride (Glimepiride) 1 TAB PO DAILY (Reported) Insulin Glargine,Hum.rec.anlog (Lantus Solostar) 30 UNIT SQ QHS (Reported) Losartan Potassium (Losartan Potassium) 25 MG PO DAILY (Reported) Metformin Hcl (Metformin Hcl) 1 TAB PO BID (Reported) Pantoprazole Sodium (Pantoprazole Sodium) 40 MG PO DAILYAC Potassium Chloride (Potassium Chloride) 1 TAB PO DAILY (Reported) Prasugrel Hcl (Effient) 1 TAB PO DAILY Scheduled PRN Nitroglycerin (NITROGLYCERIN SubLingual) 0.4 MG SL PRN Q5MIN PRN PRN CHEST PAIN (Reported) Miscellaneous Medications Cholecalciferol (Vitamin D3) (Vitamin D) 5,000 UNIT PO (Reported) Levothyroxine Sodium (Levothyroxine Sodium) (Reported) ALFONSO GUPTA APRN Feb 17, 2017 08:31 LINDSAY LEE MD Feb 18, 2017 08:44
[2017-02-17] MEDS ORDERED: PRAS10TA4 PO ×2 (08:33→11:21)
[2017-02-17] MEDS ORDERED: FUROSEMIDE 40 MG TABLET PO SCH (09:00)
[2017-02-17 10:18] VITALS: BP 143/66
[2017-02-17] MEDS ORDERED: CLOP75TA PO (11:21)
[2017-02-18] MEDS ORDERED: PRASUGREL 10 MG TABLET. PO SCH (08:00)
== END 2017-02-17 12:00 | disposition home or self-care (01) | DRG 246 ==
LOC: 2 NORTH 15:26
PROVIDERS: ADMIT Internal Medicine Cardiovascular Disease; ATTEND Internal Medicine Cardiovascular Disease
PROC: 4A023N7 Measurement of Cardiac Sampling and Pressure, Left Heart, Percutaneous Approach (ICD-10-PCS; principal; 2017-02-16)
PROC: 027135Z Dilation of Coronary Artery, Two Arteries with Two Drug-eluting Intraluminal Devices, Percutaneous Approach (ICD-10-PCS; 2017-02-16)
PROC: B2111ZZ Fluoroscopy of Multiple Coronary Arteries using Low Osmolar Contrast (ICD-10-PCS; 2017-02-16)
DX: I25.110 Atherosclerotic heart disease of native coronary artery with unstable angina pectoris (principal); I50.23 Acute on chronic systolic (congestive) heart failure; E03.9 Hypothyroidism, unspecified; I11.0 Hypertensive heart disease with heart failure; E11.649 Type 2 diabetes mellitus with hypoglycemia without coma; E66.9 Obesity, unspecified; E78.5 Hyperlipidemia, unspecified; F17.200 Nicotine dependence, unspecified, uncomplicated; I25.5 Ischemic cardiomyopathy; Z79.82 Long term (current) use of aspirin; Z79.899 Other long term (current) drug therapy; Z98.61 Coronary angioplasty status; Z88.8 Allergy status to other drugs, medicaments and biological substances; Z68.32 Body mass index [BMI] 32.0-32.9, adult
CPT/HCPCS: 36415; 71010; 78452; 80048; 80061; 82553; 82947; 83735; 83880; 84484; 85027; 92928; 93005; 93017; 93458; 93571; 93970; 96374; 96375; 96376; A9500; C1725; C1769; C1874; C1887; J0583; J1815; J1940; J2250; J2270; J2785; J3010; J3490; J7042; Q9967

== ENCOUNTER → 2017-03-14 | Outpatient (CLI) | payer OTHER ==
[2017-02-17 10:18] VITALS: BP 143/66
[~2017-03-14] MED LIST changes: +PRAS10TA4 PO
[2017-03-14 17:08] LABS: CALCIUM 8.4 mg/dL (8.5-10.1); CREATININE 1.1 mg/dL (0.6-1.0); GFR 51.6; MAGNESIUM 2.6 mg/dL (1.8-2.4); POTASSIUM 5.1 mmol/L (3.5-5.1)
== END | disposition home or self-care (01) ==
LOC: LAB 16:16
PROVIDERS: ATTEND Internal Medicine Cardiovascular Disease
DX: I47.2 Ventricular tachycardia (principal)
CPT/HCPCS: 36415; 80048; 83735

== ENCOUNTER 2017-03-22 18:23 | Inpatient (IN) | payer OTHER ==
[~2017-03-22] VITALS: Ht 152.4 cm; Wt 76.8 kg
[~2017-03-22 18:23] MED LIST changes: +METF-620 PO; -METF10002 PO; -PRAS10TA4 PO; +PRAS10TA9 PO
[2017-03-22] MEDS ORDERED: ALBUTEROL SULFATE 2.5 MG/3 ML NEBU. NEB ONE (19:00)
[2017-03-22] MEDS ORDERED: fentaNYL PF VIAL 100 MCG/2 ML VIAL IV ONE (19:00)
[2017-03-22] MEDS ORDERED: ONDANSETRON PF 4 MG/2 ML VIAL. IV ONE (19:00)
[2017-03-22 19:07] LABS: BASO # 0.1 x10^3/uL (0.0-0.2); BASO % 1 % (0-3); EOS % 7 % (0-3); HEMATOCRIT 31.4 % (36.0-47.0); HEMOGLOBIN 11.2 g/dL (12.0-15.5); LYMPH # 0.9 x10^3/uL (1.0-4.8); LYMPH % 12 % (24-48); MEAN CORPUSCULAR HEMOGLOBIN 32 pg (25-35); MEAN CORPUSCULAR HGB CONC 36 g/dL (31-37); MEAN CORPUSCULAR VOLUME 89 fL (79-100); MONO % 5 % (0-9); NEUT % 75 % (31-73); PLATELET COUNT 191 x10^3/uL (140-400); RED BLOOD COUNT 3.53 x10^6/uL (3.50-5.40); RED CELL DISTRIBUTION WIDTH 14.7 % (11.5-14.5)
[2017-03-22 19:19] LABS: INR 0.9 (0.8-1.1); PROTHROMBIN TIME PATIENT 11.8 SEC (11.7-14.0)
[2017-03-22 19:36] LABS: CALCIUM 8.5 mg/dL (8.5-10.1); CREATININE 0.9 mg/dL (0.6-1.0)
[2017-03-22 19:42] LABS: ALBUMIN 2.8 g/dL (3.4-5.0); ALBUMIN/GLOBULIN RATIO 0.8 (1.0-1.7); TOTAL BILIRUBIN 0.2 mg/dL (0.2-1.0); TOTAL PROTEIN 6.1 g/dL (6.4-8.2)
[2017-03-22] MEDS: ASPIRIN ENTERIC COATED 81 MG TABLET.DR. PO SCH (21:02)
--- NOTE | 2017-03-22 21:52 | ED.ADGEN ---
Past Medical History Past Medical History: Anxiety, CAD, CHF, Depression, Diabetes-Type II, High Cholesterol, Hypertension, Hypothyroid, Other Additional Past Medical Histor: cardiomyopathy Past Surgical History: Angioplasty, , Pacemaker, Tubal ligation Additional Past Surgical Histo: heart stents Alcohol Use: None Drug Use: None Adult General Chief Complaint Chief Complaint: SHORTNESS OF BREATH HPI HPI Patient is a 56 year old female with history of CAD, diabetes, congestive heart failure presents with progressive shortness of breath for the past 3 days. She reports wet nonproductive cough, orthopnea and dyspnea at night. No fever chills, nausea vomiting or sweats. Ports left-sided chest discomfort, denies chest pain. Discomfort is nonradiating. No abdominal pain, flank pain, urinary frequency urgency. Denies constipation diarrhea. Denies increased leg pain or swelling. Patient's PCP is Dr. Vences. Patient's studio technician video operator is Dr. Baum. Patient is a non-smoker. She is accompanied at bedside by family members. Review of Systems Review of Systems ROS as per HPI. Current Medications Current Medications Current Medications Medications (Trade) Dose Ordered Sig/Arturo Start Time Stop Time Status Last Admin Dose Admin Albuterol Sulfate (Ventolin Neb Soln) 2.5 mg 1X ONCE 03/22/17 19:00 03/22/17 19:01 DC 03/22/17 19:22 2.5 MG Aspirin (Ecotrin) 162 mg DAILYWBKFT 03/22/17 21:00 03/22/17 21:02 162 MG Fentanyl Citrate (Fentanyl 2ml Vial) 50 mcg 1X ONCE 03/22/17 19:00 03/22/17 19:01 DC 03/22/17 19:08 50 MCG Ondansetron HCl (Zofran) 4 mg 1X ONCE 03/22/17 19:00 03/22/17 19:01 DC 03/22/17 19:07 4 MG Allergies Allergies Allergies Coded Allergies Type Severity Reaction Last Updated Verified lisinopril Adverse Reaction Mild COUGH 01/16/17 Yes Physical Exam Physical Exam Constitutional: Well developed, well nourished, no acute distress, non-toxic appearance. HENT: Normocephalic, atraumatic, bilateral external ears normal, oropharynx moist, no oral exudates, nose normal. Eyes: PERRLA, EOMI, conjunctiva normal, no discharge. Neck: Normal range of motion. Cardiovascular:Heart rate regular rhythm, no murmur. Negative Homans signs. Lungs & Thorax: Respirations nonlabored, diminished coarse breath sounds in bases. Abdomen: Bowel sounds normal, soft, no tenderness, no masses, no pulsatile masses. Skin: Warm, dry Extremities: No tenderness, no cyanosis, no clubbing, ROM intact, no edema. Neurologic: Alert and oriented, normal motor function, normal sensory function, no focal deficits noted. Psychologic: Affect normal, judgement normal, mood normal. Current Patient Data Vital Signs Vital Signs Date Time Temp Pulse Resp B/P Pulse Ox O2 Delivery O2 Flow Rate FiO2 03/22/17 20:09 83 139/84 94 Room Air 03/22/17 19:39 21 03/22/17 18:29 97.9 97.9 Lab Values Laboratory Tests Test 03/22/17 18:48 White Blood Count 7.0x10^3/uL (4.0-11.0) Red Blood Count 3.53x10^6/uL (3.50-5.40) Hemoglobin 11.2g/dL (12.0-15.5) L Hematocrit 31.4% (36.0-47.0) L Mean Corpuscular Volume 89fL (79-100) Mean Corpuscular Hemoglobin 32pg (25-35) Mean Corpuscular Hemoglobin Concent 36g/dL (31-37) Red Cell Distribution Width 14.7% (11.5-14.5) H Platelet Count 191x10^3/uL (140-400) Neutrophils (%) (Auto) 75% (31-73) H Lymphocytes (%) (Auto) 12% (24-48) L Monocytes (%) (Auto) 5% (0-9) Eosinophils (%) (Auto) 7% (0-3) H Basophils (%) (Auto) 1% (0-3) Neutrophils # (Auto) 5.2x10^3uL (1.8-7.7) Lymphocytes # (Auto) 0.9x10^3/uL (1.0-4.8) L Monocytes # (Auto) 0.3x10^3/uL (0.0-1.1) Eosinophils # (Auto) 0.5x10^3/uL (0.0-0.7) Basophils # (Auto) 0.1x10^3/uL (0.0-0.2) Prothrombin Time 11.8SEC (11.7-14.0) Prothrombin Time INR 0.9 (0.8-1.1) Sodium Level 140mmol/L (136-145) Potassium Level 4.0mmol/L (3.5-5.1) Chloride Level 104mmol/L (98-107) Carbon Dioxide Level 31mmol/L (21-32) Anion Gap 5 (6-14) L Blood Urea Nitrogen 28mg/dL (7-20) H Creatinine 0.9mg/dL (0.6-1.0) Estimated GFR (Cockcroft-Gault) 65.0 BUN/Creatinine Ratio 31 (6-20) H Glucose Level 307mg/dL (70-99) H Calcium Level 8.5mg/dL (8.5-10.1) Total Bilirubin 0.2mg/dL (0.2-1.0) Aspartate Amino Transferase (AST) 22U/L (15-37) Alanine Aminotransferase (ALT) 23U/L (14-59) Alkaline Phosphatase 121U/L (46-116) H Troponin I Quantitative 0.019ng/mL (0.000-0.055) ZK-Qwk-T-Type Natriuretic Peptide 4679pg/mL (0-124) H Total Protein 6.1g/dL (6.4-8.2) L Albumin 2.8g/dL (3.4-5.0) L Albumin/Globulin Ratio 0.8 (1.0-1.7) L Laboratory Tests 03/22/17 18:48 Laboratory Tests 03/22/17 18:48 EKG EKG [EKG: Normal sinus rhythm, rate 82, nonspecific T-wave changes and inferior leads. QTC 433.] Radiology/Procedures Radiology/Procedures [Chest x-ray: Cardiomegaly with increased pulmonary vascular congestion, with implanted pacemaker.] Impressions: Acute CHF Course & Med Decision Making Course & Med Decision Making Pertinent Labs and Imaging studies reviewed. (See chart for details) CHF. Patient is not hypoxic or respiratory compromise. Troponin negative, EKG nonacute. Diuretics, aspirin, breathing treatments given with clinical improvement. Will admit to PCP with cardiology consult..] Dragon Disclaimer Dragon Disclaimer This electronic medical record was generated, in whole or in part, using a voice recognition dictation system. ALFREDO SCHAEFER DO Mar 22, 2017 21:52
[2017-03-22] MEDS ORDERED: FUROSEMIDE 40 MG/4 ML VIAL. IVP ONE (22:30)
[2017-03-23] VITALS (7 sets, daily range): BP systolic 114–155; BP diastolic 60–74
[2017-03-23 00:51] LABS: CALCIUM 8.2 mg/dL (8.5-10.1); GFR 57.6; POTASSIUM 4.2 mmol/L (3.5-5.1)
--- NOTE | 2017-03-23 02:35 | ACF ---
Admission Forms Criteria HEART FAILURE: COMMON COMPLICATIONS Clinical Indications for Inpatient Care (Place 'X' for any and all applicable criteria): Ongoing inpatient care may be indicated for heart failure with ANY ONE of the following (1)(2)(3)(4)(5): [ ]I. Ongoing need for care for primary condition requiring frequent therapy adjustments because of changes in cardiac function (eg, drug dosage changes for drugs that are renally metabolized) [ ]II. New-onset heart failure [ ]III. Heart failure with decreased urine output not responsive to attempts to optimize volume status [ ]IV. Acute cardiac ischemia causing or associated with failure [X ]V. Complications of heart failure, including ANY ONE of the following: [ ]a) Pericardial effusion [ ]b) Symptomatic pleural effusion [ ]c) O2 saturation <90% or PO2 < 60 mm Hg (8.0 kPa) on room air or require baseline supplemental O2 [ ]d) Tachypnea [X ]e) Dyspnea [ ]f) Syncope [ ]g) Change in mental status [ ]h) Acute renal insufficiency that is severe (reduction of more than 50% in estimated glomerular filtration rate from baseline) or progressive reduction of more than 25% in estimated glomerular filtration rate from baseline, with creatinine continuing to rise) [ ]i) Hemodynamic instability [ ]j) Anasarca [ ]k) Clinically significant metabolic abnormalities due to heart failure (eg, new-onset metabolic acidosis) Extended stay beyond goal length of stay for primary condition may be needed until ALL of the following are present(1)(3): [ ]a) Stable and effective diuretic regimen established (or patient on stable dialysis regimen if in chronic renal failure) [ ]b) Breathing comfortably at rest [ ]c) Saturation of arterial oxygen greater than 90% or at acceptable baseline [ ]d) Pulmonary edema absent or improved [ ]e) Hemodynamic stability [ ]f) Volume status acceptable on oral medication [ ]g) Peripheral or sacral edema absent or improved [ ]h) Renal function stable and manageable at a lower level of care [ ]i) Complications (eg, pleural effusion) resolved or manageable at a lower level of care [ ]j) Patient or caregiver has received written discharge instructions or educational material addressing activity level, diet, discharge medications, follow-up appointment, weight monitoring, and what to do if symptoms worsen The original [facility] content created by [employer] has been revised. The portions of the content which have been revised are identified through the use of italic text or in bold, and [facility] has neither reviewed nor approved the modified material.All other unmodified content is copyright [facility]. Please see references footnoted in the original [facility] edition 2016 Admission Criteria Met?: Yes YVES WALLER Mar 23, 2017 02:35
--- NOTE | 2017-03-23 06:08 | EKG ---
[facility] [address] [place] [address] Test Date: 2017-03-22 Test Time: 18:43:09 Pat Name: RAYNA RIZVI Department: Room: ED HOLD 11 Gender: F Safe Deposit Attendant: : 1960 Requested By: ALFREDO SCHAEFER Order Number: [id number] Reading MD: Donald Fischer Measurements Intervals [place] Rate: 82 P: 42 [place]: 160 QRS: 30 QRSD: 88 T: -48 QT: 368 QTc: 433 Interpretive Statements SINUS RHYTHM Electronically Signed On 03-23-2017 17:57:55 CDT by Donald Fischer
--- NOTE | 2017-03-23 07:59 | RAD ---
Exam: AP portable chest. History: Shortness of air beginning today. Comparison: 02/15/2017. Findings: Cardiac silhouette remains mildly enlarged. AICD by left subclavian approach is unchanged. Lungs are without infiltrate. No pneumothorax or pleural effusion is appreciated. Impression: 1. No acute cardiopulmonary process.
[2017-03-23] MEDS: ASPIRIN ENTERIC COATED 81 MG TABLET.DR. PO SCH (09:30)
[2017-03-23] MEDS: FUROSEMIDE 40 MG/4 ML VIAL. IVP SCH ×2 (09:30→14:13)
[2017-03-23] MEDS ORDERED: DEXTROSE 50% 25 GM / 50ML DISP.SYRIN. IV PRN (09:45)
--- NOTE | 2017-03-23 10:35 | PDOC2 ---
ALFONSO GUPTA IN SERVICE EDUCATION TEACHER 03/23/17 1035: CARDIAC CONSULT DATE OF CONSULT Date of Consult DATE: 03/23/17 TIME: 10:08 REASON FOR CONSULT Reason for Consult: CHF REFERRING PHYSICIAN Referring Physician: Ilya SOURCE Source: Chart review, Patient HISTORY OF PRESENT ILLNESS HISTORY OF PRESENT ILLNESS This is a pleasant 56 yo female admitted for complains of coughing and SOA. Reports that she has not been checking her BP but verbalized that her BG has been controlled at home. Reports that in the last 2-3 days she has noticed her leg more swollen, SOA, orthopnea, PND, nonproductive cough. SVerbalized weight gain but unable to tell me how much. he has not smoke tobacco since her LHC in . She has been compliant with her cardiac meds including DAPT as well. Reports no dizziness but has been having intermittent palpitations. Also has CP to left but did not start till yesterday and this was easily reproducible with palpation. Verbalized compliance with fluid restrictions and Na consumption. Denies any fever or chills. PAST MEDICAL HISTORY Past Medical History Cardiovascular: CHF, CAD, HTN, Hyperlipidemia, Other (ischemic cardiomyopathy s /p ICD ) CENTRAL NERVOUS SYSTEM: Peripheral neuropathy Psych: Anxiety, Depression Musculoskeletal: Osteoarthritis Renal/: Chronic renal insuff Endocrine: Diabetes, Hypothyroidism PAST SURGICAL HISTORY Past Surgical History Pacemaker (ICD implantation ([employer]) 03/06/16), Cataract Removal, Other (I&D left-sided buttock abscess), s/p PCI/KALANI to OMB of LCx and PTCA to diagonal branch of LAD 03/2015 and 01/2017 PCI/KALANI to LAD/LCx FAMILY HISTORY Family History: Hypertension SOCIAL HISTORY Smoke: <1 pack per day ALCOHOL: none Drugs: None Lives: with Family CURRENT MEDICATIONS CURRENT MEDICATIONS Current Medications Medications (Trade) Dose Ordered Sig/Arturo Route PRN Reason Start Time Stop Time Status Last Admin Dose Admin Albuterol Sulfate (Ventolin Neb Soln) 2.5 mg 1X ONCE NEB 03/22/17 19:00 03/22/17 19:01 DC 03/22/17 19:22 Fentanyl Citrate (Fentanyl 2ml Vial) 50 mcg 1X ONCE IV 03/22/17 19:00 03/22/17 19:01 DC 03/22/17 19:08 Ondansetron HCl (Zofran) 4 mg 1X ONCE IV 03/22/17 19:00 03/22/17 19:01 DC 03/22/17 19:07 Aspirin (Ecotrin) 162 mg DAILYWBKFT PO 03/22/17 21:00 03/23/17 09:30 Furosemide (Lasix) 40 mg 1X ONCE IVP 03/22/17 22:30 03/22/17 22:31 DC 03/22/17 22:11 Furosemide (Lasix) 40 mg BID92 IVP 03/23/17 09:00 03/23/17 09:30 ALLERGIES ALLERGIES: Coded Allergies: lisinopril (Verified Adverse Reaction, Mild, COUGH, 01/16/17) caused cough ROS Review of System 14 point ROS evaluated with pertinent positives noted per HPI PHYSICAL EXAM General: Alert, Oriented X3, Cooperative, No acute distress HEENT: Atraumatic, Mucous membr. moist/pink Lungs: Other (diminished bases) Heart: Regular rate (SR), Normal S1, Normal S2, Other (3/6 systolic murmur to LLS border) Abdomen: Soft, No tenderness Extremities: No cyanosis, Other (3+ bilateral LE pitting edema) Skin: No breakdown, No significant lesion Neuro: Normal speech, Sensation intact Psych/Mental Status: Mental status NL, Mood NL MUSCULOSKELETAL: Osteoarthritic changes both hands VITALS VITALS Vital Signs Date Time Temp Pulse Resp B/P Pulse Ox O2 Delivery O2 Flow Rate FiO2 03/23/17 09:24 98.3 80 149/65 98 Nasal Cannula 2.0 98.3 03/23/17 08:50 20 LABS Lab: Laboratory Tests Test 03/22/17 18:48 03/23/17 00:30 White Blood Count 7.0x10^3/uL (4.0-11.0) Red Blood Count 3.53x10^6/uL (3.50-5.40) Hemoglobin 11.2g/dL (12.0-15.5) Hematocrit 31.4% (36.0-47.0) Mean Corpuscular Volume 89fL (79-100) Mean Corpuscular Hemoglobin 32pg (25-35) Mean Corpuscular Hemoglobin Concent 36g/dL (31-37) Red Cell Distribution Width 14.7% (11.5-14.5) Platelet Count 191x10^3/uL (140-400) Neutrophils (%) (Auto) 75% (31-73) Lymphocytes (%) (Auto) 12% (24-48) Monocytes (%) (Auto) 5% (0-9) Eosinophils (%) (Auto) 7% (0-3) Basophils (%) (Auto) 1% (0-3) Neutrophils # (Auto) 5.2x10^3uL (1.8-7.7) Lymphocytes # (Auto) 0.9x10^3/uL (1.0-4.8) Monocytes # (Auto) 0.3x10^3/uL (0.0-1.1) Eosinophils # (Auto) 0.5x10^3/uL (0.0-0.7) Basophils # (Auto) 0.1x10^3/uL (0.0-0.2) Prothrombin Time 11.8SEC (11.7-14.0) Prothromb Time International Ratio 0.9 (0.8-1.1) Sodium Level 140mmol/L (136-145) 140mmol/L (136-145) Potassium Level 4.0mmol/L (3.5-5.1) 4.2mmol/L (3.5-5.1) Chloride Level 104mmol/L (98-107) 106mmol/L (98-107) Carbon Dioxide Level 31mmol/L (21-32) 31mmol/L (21-32) Anion Gap 5 (6-14) 3 (6-14) Blood Urea Nitrogen 28mg/dL (7-20) 31mg/dL (7-20) Creatinine 0.9mg/dL (0.6-1.0) 1.0mg/dL (0.6-1.0) Estimated GFR (Cockcroft-Gault) 65.0 57.6 BUN/Creatinine Ratio 31 (6-20) Glucose Level 307mg/dL (70-99) 170mg/dL (70-99) Calcium Level 8.5mg/dL (8.5-10.1) 8.2mg/dL (8.5-10.1) Total Bilirubin 0.2mg/dL (0.2-1.0) Aspartate Amino Transf (AST/SGOT) 22U/L (15-37) Alanine Aminotransferase (ALT/SGPT) 23U/L (14-59) Alkaline Phosphatase 121U/L (46-116) Troponin I Quantitative 0.019ng/mL (0.000-0.055) LF-Ewc-A-Type Natriuretic Peptide 4679pg/mL (0-124) Total Protein 6.1g/dL (6.4-8.2) Albumin 2.8g/dL (3.4-5.0) Albumin/Globulin Ratio 0.8 (1.0-1.7) ECHOCARDIOGRAM ECHOCARDIOGRAM <Conclusion> The Left Ventricle is mildly dilated. Left ventricle systolic function is moderately impaired. Left ventricular ejection fraction is estimated at 35%. There is no significant aortic valvular stenosis. Doppler and Color Flow revealed no significant aortic regurgitation. Doppler and Color Flow revealed mild mitral regurgitation. Doppler and Color Flow revealed mild to moderate tricuspid regurgitation. The PA pressure was estimated at 52 mmHg. There is a small pericardial effusion with no hemodynamic significance. DATE: 10/26/16 1747 HEART CATH HEART CATH Conclusion 1. Mild left ventricular pressure overload 2. Three vessel CAD with positive iFR of the LAD at 0.83 3. Successful PCI of the LCx and LAD with implantation of drug eluting stents. Recommendations Aggressive medical therapy ASA 81mg daily indefinitely Prasugrel 10mg daily x 30 days and then transition back to Plavix 75mg daily, prefer indefinite therapy with DAPT. Cardiac rehab. DATE: 02/16/17 1711 ASSESSMENT/PLAN ASSESSMENT/PLAN 1. Acute on chronic systolic CHF: notable for episodes of palpitations. Contributing uncontrolled HTN 2. ICM: [employer] AICD. 3. CAD: recent PCI/KALANI 01/2017 as noted above. 4. Atypical Chest pain: pleuritic/MSK due to episodes of intractable coughing 5. HTN: labile 6. DM2/HLP: uncontrolled BG as an inpt 7. Hx of tobaccoism: quit smoking 01/2017 Recommendations 1. Significant discussion in regards to fluid restrictions, daily weight, BP monitoring, Na 2. Interrogate device 3. Optimize BP control 4. DAPT, continue with secondary prevention. 5. Continue lasix therapy Problems: GARY GROVE MD 03/23/17 2017: CARDIAC CONSULT ALLERGIES ALLERGIES: Coded Allergies: lisinopril (Verified Adverse Reaction, Mild, COUGH, 01/16/17) caused cough ASSESSMENT/PLAN ASSESSMENT/PLAN Patient seen and examined. Agree with CITY LIBRARY DIRECTOR's assessment and plan. Acute on chronic systolic heart failure probably from non compliance. Symptoms improving with diuresis. CP musculoskeletal. CAD status stable. Continue DAPT. Thank you for your consultation. Problems: ALFONSO GUPTA APRN Mar 23, 2017 10:35 GARY GROVE MD Mar 23, 2017 20:17
[2017-03-23] MEDS: POTASSIUM CHLORIDE 10 MEQ TABLET.ER. PO SCH (11:12)
[2017-03-23] MEDS: FERROUS SULFATE 325 MG TABLET. PO SCH ×2 (11:12→18:05)
[2017-03-23] MEDS: CARVEDILOL 3.125 MG TABLET. PO SCH ×2 (11:12→18:05)
[2017-03-23] MEDS: CLOPIDOGREL BISULFATE 75 MG TABLET PO SCH (11:12)
[2017-03-23] MEDS: PANTOPRAZOLE 40 MG TABLET.DR. PO SCH (11:12)
[2017-03-23] MEDS: LOSARTAN POTASSIUM 25 MG TABLET. PO SCH (11:13)
[2017-03-23] MEDS ORDERED: ATORVASTATIN CA80 MG PO (11:54)
--- NOTE | 2017-03-23 12:16 | PDOC ---
PROGRESS NOTES Subjective Subjective Patient reports some recent cough and intermittent chest pains. Objective Objective Vital Signs Date Time Temp Pulse Resp B/P Pulse Ox O2 Delivery O2 Flow Rate FiO2 03/23/17 11:13 78 155/74 03/23/17 11:10 20 Room Air 03/23/17 10:16 97.8 97 2.0 97.8 Intake and Output 03/23/17 07:00 Output Total 700 ml Balance -700 ml Output Urine Total 700 ml Physical Exam Abdomen: Normal bowel sounds, Soft, No tenderness Heart: Regular rate Extremities: Other (1+ edema bilateral LE's) General: Alert, Oriented X3, No acute distress Lungs: Other (BS mildly decreased throughout, moderate expiratory wheezes present) Assessment Assessment Problems Medical Problems: (1) Systolic CHF, acute Status: Acute Plan Plan of Care 1. Chest pain with history of CAD and recent intervention - stable, Troponin negative. Further evaluation per Cardiology. 2. acute bronchitis with bronchospasm - some of patient's symptoms could be due to this. Recently quit smoking after long smoking history. Denies that she uses inhalers at home. Will orders Prednisone and nebs. CXR clear so no indication for abx at this time. 3. CHF - appears compensated, continue her usual diuretics. 4. hypothyroidism - TSH markedly elevated. Patient denies missing doses of her Levothyroxine. Will increase dose and follow as outpatient. 5. DM2 - continue home meds and follow FSBG. 6. HTN - continue home meds. 7. hyperlipidemia - very well controlled on recent lab, continue Atorvastatin 80mg. Comment Review of Relevant I have reviewed the following items joanne (where applicable) has been applied. Labs Laboratory Tests Test 03/22/17 00:30 03/22/17 18:48 03/23/17 00:30 03/23/17 10:18 Troponin I Quantitative 0.024ng/mL (0.000-0.055) 0.019ng/mL (0.000-0.055) White Blood Count 7.0x10^3/uL (4.0-11.0) Red Blood Count 3.53x10^6/uL (3.50-5.40) Hemoglobin 11.2g/dL (12.0-15.5) Hematocrit 31.4% (36.0-47.0) Mean Corpuscular Volume 89fL (79-100) Mean Corpuscular Hemoglobin 32pg (25-35) Mean Corpuscular Hemoglobin Concent 36g/dL (31-37) Red Cell Distribution Width 14.7% (11.5-14.5) Platelet Count 191x10^3/uL (140-400) Neutrophils (%) (Auto) 75% (31-73) Lymphocytes (%) (Auto) 12% (24-48) Monocytes (%) (Auto) 5% (0-9) Eosinophils (%) (Auto) 7% (0-3) Basophils (%) (Auto) 1% (0-3) Neutrophils # (Auto) 5.2x10^3uL (1.8-7.7) Lymphocytes # (Auto) 0.9x10^3/uL (1.0-4.8) Monocytes # (Auto) 0.3x10^3/uL (0.0-1.1) Eosinophils # (Auto) 0.5x10^3/uL (0.0-0.7) Basophils # (Auto) 0.1x10^3/uL (0.0-0.2) Prothrombin Time 11.8SEC (11.7-14.0) Prothromb Time International Ratio 0.9 (0.8-1.1) Sodium Level 140mmol/L (136-145) 140mmol/L (136-145) Potassium Level 4.0mmol/L (3.5-5.1) 4.2mmol/L (3.5-5.1) Chloride Level 104mmol/L (98-107) 106mmol/L (98-107) Carbon Dioxide Level 31mmol/L (21-32) 31mmol/L (21-32) Anion Gap 5 (6-14) 3 (6-14) Blood Urea Nitrogen 28mg/dL (7-20) 31mg/dL (7-20) Creatinine 0.9mg/dL (0.6-1.0) 1.0mg/dL (0.6-1.0) Estimated GFR (Cockcroft-Gault) 65.0 57.6 BUN/Creatinine Ratio 31 (6-20) Glucose Level 307mg/dL (70-99) 170mg/dL (70-99) Calcium Level 8.5mg/dL (8.5-10.1) 8.2mg/dL (8.5-10.1) Total Bilirubin 0.2mg/dL (0.2-1.0) Aspartate Amino Transf (AST/SGOT) 22U/L (15-37) Alanine Aminotransferase (ALT/SGPT) 23U/L (14-59) Alkaline Phosphatase 121U/L (46-116) TS-Foc-A-Type Natriuretic Peptide 4679pg/mL (0-124) Total Protein 6.1g/dL (6.4-8.2) Albumin 2.8g/dL (3.4-5.0) Albumin/Globulin Ratio 0.8 (1.0-1.7) Thyroid Stimulating Hormone (TSH) 34.484uIU/mL (0.358-3.74) Glucose (Fingerstick) 148mg/dL (70-99) Laboratory Tests Test 03/22/17 18:48 03/23/17 00:30 03/23/17 10:18 White Blood Count 7.0x10^3/uL (4.0-11.0) Red Blood Count 3.53x10^6/uL (3.50-5.40) Hemoglobin 11.2g/dL (12.0-15.5) Hematocrit 31.4% (36.0-47.0) Mean Corpuscular Volume 89fL (79-100) Mean Corpuscular Hemoglobin 32pg (25-35) Mean Corpuscular Hemoglobin Concent 36g/dL (31-37) Red Cell Distribution Width 14.7% (11.5-14.5) Platelet Count 191x10^3/uL (140-400) Neutrophils (%) (Auto) 75% (31-73) Lymphocytes (%) (Auto) 12% (24-48) Monocytes (%) (Auto) 5% (0-9) Eosinophils (%) (Auto) 7% (0-3) Basophils (%) (Auto) 1% (0-3) Neutrophils # (Auto) 5.2x10^3uL (1.8-7.7) Lymphocytes # (Auto) 0.9x10^3/uL (1.0-4.8) Monocytes # (Auto) 0.3x10^3/uL (0.0-1.1) Eosinophils # (Auto) 0.5x10^3/uL (0.0-0.7) Basophils # (Auto) 0.1x10^3/uL (0.0-0.2) Prothrombin Time 11.8SEC (11.7-14.0) Prothromb Time International Ratio 0.9 (0.8-1.1) Sodium Level 140mmol/L (136-145) 140mmol/L (136-145) Potassium Level 4.0mmol/L (3.5-5.1) 4.2mmol/L (3.5-5.1) Chloride Level 104mmol/L (98-107) 106mmol/L (98-107) Carbon Dioxide Level 31mmol/L (21-32) 31mmol/L (21-32) Anion Gap 5 (6-14) 3 (6-14) Blood Urea Nitrogen 28mg/dL (7-20) 31mg/dL (7-20) Creatinine 0.9mg/dL (0.6-1.0) 1.0mg/dL (0.6-1.0) Estimated GFR (Cockcroft-Gault) 65.0 57.6 BUN/Creatinine Ratio 31 (6-20) Glucose Level 307mg/dL (70-99) 170mg/dL (70-99) Calcium Level 8.5mg/dL (8.5-10.1) 8.2mg/dL (8.5-10.1) Total Bilirubin 0.2mg/dL (0.2-1.0) Aspartate Amino Transf (AST/SGOT) 22U/L (15-37) Alanine Aminotransferase (ALT/SGPT) 23U/L (14-59) Alkaline Phosphatase 121U/L (46-116) Troponin I Quantitative 0.019ng/mL (0.000-0.055) QO-Frz-M-Type Natriuretic Peptide 4679pg/mL (0-124) Total Protein 6.1g/dL (6.4-8.2) Albumin 2.8g/dL (3.4-5.0) Albumin/Globulin Ratio 0.8 (1.0-1.7) Thyroid Stimulating Hormone (TSH) 34.484uIU/mL (0.358-3.74) Glucose (Fingerstick) 148mg/dL (70-99) Medications Current Medications Albuterol Sulfate (Ventolin Neb Soln) 2.5 mg 1X ONCE NEB Last administered on 03/22/17 19:22; Start 03/22/17 at 19:00; Stop 03/22/17 at 19:01; Status DC Fentanyl Citrate (Fentanyl 2ml Vial) 50 mcg 1X ONCE IV Last administered on 19:08; Start 03/22/17 at 19:00; Stop 03/22/17 at 19:01; Status DC Ondansetron HCl (Zofran) 4 mg 1X ONCE IV Last administered on 03/22/17 19:07 ; Start 03/22/17 at 19:00; Stop 03/22/17 at 19:01; Status DC Aspirin (Ecotrin) 162 mg DAILYWBKFT PO Last administered on 03/23/17 09:30; Start 03/22/17 at 21:00 Furosemide (Lasix) 40 mg 1X ONCE IVP Last administered on 03/22/17 22:11; Start 03/22/17 at 22:30; Stop 03/22/17 at 22:31; Status DC Furosemide (Lasix) 40 mg BID92 IVP Last administered on 03/23/17 09:30; Start 03/23/17 at 09:00 Dextrose (Dextrose 50%-Water Syringe) 12.5 gm PRN Q15MIN PRN IV SEE COMMENTS; Start 03/23/17 at 09:45 Carvedilol (Coreg) 3.125 mg BIDWMEALS PO Last administered on 03/23/17 11:12; Start 03/23/17 at 11:00 Clopidogrel Bisulfate (Plavix) 75 mg DAILY PO Last administered on 03/23/17 11 :12; Start 03/23/17 at 11:00 Ferrous Sulfate (Feosol) 325 mg TIDWMEALS PO Last administered on 03/23/17 11: 12; Start 03/23/17 at 12:00 Losartan Potassium (Cozaar) 25 mg DAILY PO Last administered on 03/23/17 11:13 ; Start 03/23/17 at 11:00 Pantoprazole Sodium (Protonix) 40 mg DAILYAC PO Last administered on 03/23/17 11:12; Start 03/23/17 at 11:00 Potassium Chloride (Klor-Con) 10 meq DAILY PO Last administered on 03/23/17t 11 :12; Start 03/23/17 at 11:00 Furosemide (Lasix) 40 mg BID92 IVP ; Start 03/23/17 at 14:00; Status UNV Active Scripts Active Clopidogrel (Clopidogrel Bisulfate) 75 Mg Tablet 1 Tab PO DAILY Pantoprazole Sodium 40 Mg Tablet.dr 40 Mg PO DAILYAC Feosol (Ferrous Sulfate) 325 Mg Tablet 325 Mg PO TIDWMEALS Coreg (Carvedilol) 3.125 Mg Tablet 3.125 Mg PO BIDWMEALS 30 Days Reported Atorvastatin Calcium 80 Mg Tablet 1 Tab PO QHS Losartan Potassium 25 Mg Tablet 25 Mg PO DAILY Gabapentin 300 Mg Capsule 300 Mg PO TID Levothyroxine Sodium 150 Mcg Tablet 150 DAILY Lasix (Furosemide) 40 Mg Tablet 40 Mg PO BID Potassium Chloride 10 Meq Tab.er.prt 1 Tab PO DAILY Glimepiride 4 Mg Tablet 1 Tab PO DAILY Lantus Solostar (Insulin Glargine,Hum.rec.anlog) 100 Unit/1 Ml Insuln.pen 30 Unit SQ QHS Metformin Hcl 1,000 Mg Tablet 1 Tab PO BID Vitals/I & O Vital Sign - Last 24 Hours 03/22/17 03/22/17 03/22/17 03/22/17 18:29 18:37 19:08 19:09 Temp 97.9 97.9 Pulse 83 83 82 Resp 24 12 B/P 165/80 174/86 160/70 Pulse Ox 95 95 O2 Delivery Room Air Room Air Room Air 03/22/17 03/22/17 03/22/17 03/22/17 19:24 19:39 20:09 20:39 Pulse 80 83 84 Resp 21 B/P 145/72 139/84 141/64 Pulse Ox 96 93 94 94 O2 Delivery Room Air Room Air Room Air Room Air 03/22/17 03/22/17 03/22/17 03/22/17 21:09 21:39 22:09 22:39 Pulse 86 86 83 83 B/P 147/69 145/64 147/75 150/74 Pulse Ox 93 91 O2 Delivery Room Air Room Air 03/22/17 03/23/17 03/23/17 03/23/17 23:39 00:39 01:39 02:39 Pulse 83 82 86 84 Resp 20 20 20 B/P 120/60 118/62 146/71 135/64 Pulse Ox 94 94 94 94 O2 Delivery Room Air Room Air Nasal Cannula Nasal Cannula O2 Flow Rate 2 2 03/23/17 03/23/17 03/23/17 03/23/17 03:39 04:39 05:39 06:39 Pulse 84 82 84 78 Resp 18 18 18 20 B/P 118/58 129/67 107/37 115/55 Pulse Ox 91 91 92 92 O2 Delivery Nasal Cannula Nasal Cannula Nasal Cannula Nasal Cannula O2 Flow Rate 2 2 2 2 03/23/17 03/23/17 03/23/17 03/23/17 07:39 07:41 08:00 08:18 Pulse 80 Resp 20 B/P 155/86 Pulse Ox 97 O2 Delivery Nasal Cannula Nasal Cannula Nasal Cannula Nasal Cannula O2 Flow Rate 2 2.0 2.0 03/23/17 03/23/17 03/23/17 03/23/17 08:50 09:24 10:16 11:10 Temp 98.3 98.3 97.8 98.3 98.3 97.8 Pulse 80 80 78 Resp 20 20 B/P 149/65 149/65 143/67 155/74 Pulse Ox 98 98 97 O2 Delivery Nasal Cannula Nasal Cannula Nasal Cannula Room Air O2 Flow Rate 2.0 2.0 2.0 03/23/17 03/23/17 11:12 11:13 Pulse 78 78 B/P 155/74 155/74 Intake and Output 03/22/17 03/22/17 03/23/17 15:00 23:00 07:00 Output Total 700 ml Balance -700 ml FEROZ OROZCO MD Mar 23, 2017 12:16
--- NOTE | 2017-03-23 12:59 | HP ---
ADMIT DATE: 03/23/2017 CHIEF COMPLAINT: Shortness of breath and cough. HISTORY OF PRESENT ILLNESS: The patient is a 56-year-old female with a significant history of coronary artery disease and CHF who presented to the Emergency Room with the above complaint. The patient reports a several day history of increasing shortness of breath with a nonproductive cough. Her symptoms apparently worsened at home so she came to the Emergency Room. Initial evaluation there showed the patient to be without hypoxia on room air. Her chest x-ray was clear. Initial troponin was negative, and the patient was admitted for further treatment. PAST MEDICAL HISTORY: Coronary artery disease, status post drug-eluting stent placement last month, congestive heart failure with cardiomyopathy, recent ejection fraction 35%, diabetes mellitus type 2, hyperlipidemia, hypothyroidism, chronic kidney disease, anemia, hypertension, osteoarthritis, and chronic anxiety. PAST SURGICAL HISTORY: Drug-eluting stent placements x2 in January 2017, ICD placement, cataract extraction, and section. HOME MEDICATIONS: Atorvastatin 80 mg daily, carvedilol 3.125 mg b.i.d., Plavix 75 mg daily, iron 325 mg daily, furosemide 40 mg b.i.d., gabapentin 300 mg t.i.d., glimepiride 4 mg daily, Lantus insulin 30 units at bedtime, levothyroxine 150 mcg daily, losartan 25 mg daily, metformin 1000 mg b.i.d., pantoprazole 40 mg daily, potassium 10 mEq daily, and Flonase nasal spray daily. FAMILY HISTORY: Noncontributory. SOCIAL HISTORY: The patient is . She has a long smoking history but states that she quit smoking cigarettes in January. REVIEW OF SYSTEMS: The patient denies fever or chills. She has some intermittent chest pains. They do not seem to be worsening recently. She has had a cough as in the HPI which is new for her. She denies using inhalers at home. She denies abdominal pain, nausea, or vomiting. Her blood sugars have been fairly well controlled with her usual medications. She denies missing doses of her levothyroxine but apparently has been on the same dose for some time. PHYSICAL EXAMINATION: GENERAL: The patient is alert and oriented x 3, resting comfortably in bed in no acute distress. HEENT: PERRL. EOMI, sclerae clear. Oropharynx: Mucous membranes are moist. NECK: Supple without lymphadenopathy. CHEST: Breath sounds mildly decreased throughout. Moderate expiratory wheezes are present. CARDIOVASCULAR: Regular rhythm without murmur. ABDOMEN: Soft, nontender, and normoactive bowel sounds. EXTREMITIES: 1+ pitting edema in bilateral lower extremities without erythema. ASSESSMENT AND PLAN: 1. Chest pain with history of coronary artery disease and recent intervention. The patient appears stable. Her troponin is negative. Further evaluation as per Cardiology recommendations. 2. Acute bronchitis with bronchospasm. Some of the patient's symptoms could certainly be due to this. She has recently quit smoking after a long smoking history. We will start her on prednisone and nebulized treatments. Chest x-ray is clear so no indication for antibiotics at this time. 3. Congestive heart failure. This appears fairly well compensated as her chest x-ray is clear, although the BNP is elevated. We will continue her usual diuretics and follow. 4. Hypothyroidism. The patient's TSH is markedly elevated at over 34. She denies missing doses of her levothyroxine. We will increase her dose and follow this as an outpatient. 5. Diabetes mellitus type 2. Continue home meds and follow fingersticks. 6. Hypertension. Continue home medications. 7. Hyperlipidemia. This is very well controlled on recent lab. We will continue the atorvastatin 80 mg daily. FEROZ OROZCO MD DR: TRINA/mukesh JOB#: [id number] / [id number] HERMILAD
[2017-03-23] MEDS ORDERED: FUROSEMIDE 40 MG/4 ML VIAL. IVP SCH (14:00)
[2017-03-23] MEDS: GABAPENTIN 300 MG CAPSULE. PO SCH ×2 (14:13→21:10)
[2017-03-23] MEDS: LEVOTHYROXINE 175 MCG TABLET PO SCH (14:13)
[2017-03-23] MEDS: GLIMEPIRIDE 2 MG TABLET. PO SCH (14:13)
[2017-03-23] MEDS: predniSONE 20 MG TABLET PO SCH (14:13)
[2017-03-23] MEDS ORDERED: BENZOCAINE/MENTHOL LOZENGE. PO PRN (14:30)
[2017-03-23] MEDS ORDERED: ACETAMINOPHEN 325 MG TABLET. PO PRN (14:30)
[2017-03-23] MEDS: ALBUTEROL SULFATE 2.5 MG/3 ML NEBU. NEB SCH ×2 (16:25→19:51)
[2017-03-23] MEDS: INSULIN ASPART 300 UNITS/3 ML INSULN.PEN SQ SCH ×2 (18:09→21:16)
[2017-03-23] MEDS ORDERED: FUROSEMIDE 40 MG TABLET. PO SCH (21:00)
[2017-03-23] MEDS ORDERED: INSULIN DETEMIR 300 UNITS/3 ML INSULN.PEN. SQ SCH (21:00)
[2017-03-23] MEDS ORDERED: ATORVASTATIN CALCIUM 40 MG TABLET. PO SCH (21:00)
[2017-03-24 02:43] VITALS: BP 135/67
[2017-03-24] MEDS: LEVOTHYROXINE 175 MCG TABLET PO SCH (06:28)
[2017-03-24 07:30] VITALS: BP 157/76
[2017-03-24] MEDS: ALBUTEROL SULFATE 2.5 MG/3 ML NEBU. NEB SCH ×2 (08:12→12:37)
[2017-03-24] MEDS: ASPIRIN ENTERIC COATED 81 MG TABLET.DR. PO SCH (08:52)
[2017-03-24] MEDS: GABAPENTIN 300 MG CAPSULE. PO SCH ×2 (08:52→13:10)
[2017-03-24] MEDS: POTASSIUM CHLORIDE 10 MEQ TABLET.ER. PO SCH (08:53)
[2017-03-24] MEDS: PANTOPRAZOLE 40 MG TABLET.DR. PO SCH (08:53)
[2017-03-24] MEDS: LOSARTAN POTASSIUM 25 MG TABLET. PO SCH (08:54)
[2017-03-24] MEDS: FERROUS SULFATE 325 MG TABLET. PO SCH ×2 (08:54→13:10)
[2017-03-24] MEDS: CARVEDILOL 3.125 MG TABLET. PO SCH (08:54)
[2017-03-24] MEDS: GLIMEPIRIDE 2 MG TABLET. PO SCH (08:54)
[2017-03-24] MEDS: FUROSEMIDE 40 MG/4 ML VIAL. IVP SCH (08:55)
[2017-03-24] MEDS: predniSONE 20 MG TABLET PO SCH (08:56)
[2017-03-24] MEDS: CLOPIDOGREL BISULFATE 75 MG TABLET PO SCH (08:56)
--- NOTE | 2017-03-24 09:24 | PDOC ---
AMBROSE MCDONNELL DONTRELL 03/24/17 0924: CARDIO Progress Notes Date and Time Date of Service 03/24/17 Time of Evaluation 0922 Subjective Subjective: No Chest Pain, No shortness of breath, No Palpitations, Other ( feeling better, edema less ) Vitals Vitals Vital Signs Date Time Temp Pulse Resp B/P Pulse Ox O2 Delivery O2 Flow Rate FiO2 03/24/17 08:54 80 167/78 03/24/17 08:12 94 Room Air 03/24/17 07:30 97.7 16 97.7 03/23/17 22:12 2.0 Weight Weight [ ] Input and Output Intake and Output Intake and Output 03/24/17 07:00 Intake Total 650 ml Balance 650 ml Intake Oral 650 ml # Voids 6 # Bowel Movements 1 Laboratory Labs Laboratory Tests Test 03/23/17 10:18 03/23/17 16:49 03/23/17 20:53 03/24/17 08:26 Glucose (Fingerstick) 148mg/dL (70-99) 267mg/dL (70-99) 367mg/dL (70-99) 259mg/dL (70-99) Physical Exam HEENT: Neck Supple W Full Motion Chest: Symmetric LUNGS: Other (coarse bases ) Heart: S1S2, RRR, murmurs (2/6 systolic murmur ) Abdomen: Soft N/T Extremities: 2+ Dorsalis Pedis, Other (trace LE edema ) Neurology: alert, oriented, follow commands Assessment Assessment 1. Acute on chronic systolic CHF 2. ICM: s/p AICD ([employer]) 3. CAD: recent PCI/KALANI 01/2017 4. Chest pain, atypical; AMI ruled out 5. HTN 6. DM2/HLP 7. Subclinical hypothyroidism; TSH 34.484 8. Acute bronchitis Recommendations compensated; will convert Lasix to oral continue with optimization therapy; increase Coreg Reemphasized importance of medical and dietary compliance. Continue secondary prevention measures. Patient to f/u in our office with Dr. Baum as previously scheduled. LINDSAY LEE MD 03/24/17 1245: CARDIO Progress Notes Plan Plan Pt. seen and examined. Agree with above CLINICAL APPEALS AUDITOR note. No acute events. Reports feeling much better today. Etiology of HF exac unclear , ? diet Normal exam today. Labs/meds reviewed with nurse Kip to CALVIN from CV perspective with close f/u in the office in 1 week. thanks AMBROSE MCDONNELL APRN Mar 24, 2017 09:24 LINDSAY LEE MD Mar 24, 2017 12:45
[2017-03-24 11:30] VITALS: BP 154/61
[2017-03-24] MEDS: INSULIN ASPART 300 UNITS/3 ML INSULN.PEN SQ SCH (13:15)
[2017-03-24] MEDS ORDERED: FUROSEMIDE 40 MG TABLET. PO SCH (14:00)
--- NOTE | 2017-03-24 14:03 | DISCH ---
DISCHARGE INSTRUCTIONS Condition on Discharge Condition on Discharge: Stable Activity After Discharge Activity Instructions for Disc: Activity as tolerated, Avoid exertion Diet after Discharge Diet after Discharge: Cardiac, No Added Salt Checks after Discharge Checks after discharge: Check blood press - daily, Check blood sugar, ac/hs, Weigh Yourself Daily Contacting the DR. after DC Call your doctor for: If your condition worsens Follow-Up Follow up with: Dr. Vences 1-2 weeks Follow Up With: Dr. Baum as previously scheduled Treatment/Equipment after DC Discharge Respiratory Equipmen: Nebulizer SUSANA DAVALOS MD Mar 24, 2017 14:03
[2017-03-24] MEDS ORDERED: LEVO175T2 PO (14:09)
[2017-03-24] MEDS ORDERED: ASPI81TA9 PO (14:09)
[2017-03-24] MEDS ORDERED: METH4TAB2 PO (14:09)
[2017-03-24] MEDS ORDERED: ALBU2.5V5 NEB (14:09)
[2017-03-24] MEDS ORDERED: CARV6.252 PO (14:09)
--- NOTE | 2017-03-24 14:18 | PDOC ---
Provider Note Provider Note discharge dictated # [id number] SUSANA DAVALOS MD Mar 24, 2017 14:17
[2017-03-24] MEDS ORDERED: CARVEDILOL 6.25 MG TABLET. PO SCH (17:00)
--- NOTE | 2017-03-24 21:39 | DS ---
DATE OF DISCHARGE: 03/24/2017 ADMISSION DIAGNOSES: Acute on chronic congestive heart failure, systolic heart failure with acute respiratory failure from chronic obstructive pulmonary disease exacerbation. CONSULTATIONS: Cardiology, Dr. Baum. PROCEDURES: None. COMPLICATIONS: None. HISTORY AND HOSPITAL COURSE: This is a 56-year-old female who developed shortness of breath, which prompted her to come to the Emergency Room. She has a history of heart disease, diabetes, prior heart failure, but developed a cough with orthopnea and dyspnea. She did not have any fever or chills. Chest x-ray showed cardiomegaly with increased pulmonary vascular congestion, but her troponin was negative and her EKG was negative for acute infarct. She was admitted. She was diuresed. She was started on nebulizer treatments and steroids. Her Coreg dose was increased. She was found to be hypothyroid and her thyroid dose was increased. Blood sugar was initially elevated, but it is controlled. She is on oral steroids, which is contributing some to her hyperglycemia. No other medical complications while here. She has family around and she is wanting to go home. She has never needed nebulizer before, but other family members have one and she is uncomfortable using it. She will be discharged on albuterol 2.5 mg nebulized q.i.d. #120 two refills; aspirin 81 mg daily, carvedilol 6.25 mg b.i.d. with meals, which is an increase of 3.125 prior to admission, 11 refills; levothyroxine 170 mcg, which is increased from 150 prior to her hospitalization, #30, 11 refills and she will complete a Medrol Dosepak #1. She will continue atorvastatin 80 mg at bedtime, clopidogrel 75 mg daily, iron sulfate 325 t.i.d. with meals, furosemide 40 mg b.i.d., gabapentin 300 mg t.i.d., glimepiride 4 mg daily, Lantus 30 units subQ at bedtime, losartan 25 mg daily, metformin 1000 b.i.d., pantoprazole 40 daily and potassium chloride 10 mEq daily. Her diet will be low salt. Activity as tolerated. She will be provided a nebulizer. She will follow up with Dr. Vences in the office in a week or two and Dr. Baum as scheduled. W Cynthia DAVALOS MD DR: Tejas JOB#: [id number] / [id number]
== END 2017-03-24 15:30 | disposition home or self-care (01) | DRG 291 ==
LOC: ER 18:23 → ED HOLD 23:50 → 2 NORTH 03-23 08:24
PROVIDERS: ADMIT Family Medicine; ATTEND Family Medicine
DX: I13.0 Hypertensive heart and chronic kidney disease with heart failure and stage 1 through stage 4 chronic kidney disease, or unspecified chronic kidney disease (principal); I50.23 Acute on chronic systolic (congestive) heart failure; J96.00 Acute respiratory failure, unspecified whether with hypoxia or hypercapnia; J44.0 Chronic obstructive pulmonary disease with (acute) lower respiratory infection; J44.1 Chronic obstructive pulmonary disease with (acute) exacerbation; E03.9 Hypothyroidism, unspecified; E11.22 Type 2 diabetes mellitus with diabetic chronic kidney disease; E11.65 Type 2 diabetes mellitus with hyperglycemia; E78.00 Pure hypercholesterolemia, unspecified; E78.5 Hyperlipidemia, unspecified; F17.210 Nicotine dependence, cigarettes, uncomplicated; I25.10 Atherosclerotic heart disease of native coronary artery without angina pectoris; I25.5 Ischemic cardiomyopathy; J20.9 Acute bronchitis, unspecified; M19.90 Unspecified osteoarthritis, unspecified site; F41.9 Anxiety disorder, unspecified; F32.9 Major depressive disorder, single episode, unspecified; D64.9 Anemia, unspecified; N18.9 Chronic kidney disease, unspecified; Z79.4 Long term (current) use of insulin; Z79.82 Long term (current) use of aspirin; Z79.84 Long term (current) use of oral hypoglycemic drugs; Z79.899 Other long term (current) drug therapy; Z82.49 Family history of ischemic heart disease and other diseases of the circulatory system; Z91.19 Patient's noncompliance with other medical treatment and regimen; Z95.5 Presence of coronary angioplasty implant and graft; Z95.810 Presence of automatic (implantable) cardiac defibrillator; Z88.8 Allergy status to other drugs, medicaments and biological substances
CPT/HCPCS: 36415; 71010; 80048; 80053; 82947; 83880; 84443; 84484; 85027; 85610; 93005; 94250; 94640; 94760; 96374; 96375; J1815; J1940; J2405; J3010; J7512; 99285-25